=== PATIENT | female | born 1965 | race Caucasian/White ===

== ENCOUNTER 2023-07-01 13:39 | Outpatient (REF) | payer OTHER, SELFPAY | END 2023-07-01 13:40 | disposition home or self-care (01) | LOC: HO.MRI 13:39 | PROVIDERS: PCP Hospitalist; Visit Provider Psychiatry & Neurology Neurology | DX: R51.9 Headache, unspecified (principal) | CPT/HCPCS: 70553; A9585 ==

== ENCOUNTER 2024-04-19 20:59 | Emergency (ER) | payer OTHER, SELFPAY ==
--- NOTE | ~2024-04-19 | XR_ITS ---
EXAMINATION: XR CHEST CLINICAL INFORMATION: Shortness of breath. COMPARISON: None available. TECHNIQUE: 2 views of the chest were obtained. FINDINGS: No significant abnormality is noted involving the heart, lungs, mediastinum, bony thorax or soft tissues. XR/XR chest 2V IMPRESSION: Unremarkable examination. Electronically signed by: Reinaldo Moreau MD 04/19/2024 11:44 PM EDT RP
--- NOTE | 2024-04-19 21:21 | ECG_ITS ---
Test Reason : CHEST PAIN Blood Pressure : / mmHG Vent. Rate : 099 BPM Atrial Rate : 099 BPM P-R Int : 154 ms QRS Dur : 092 ms QT Int : 346 ms P-R-T Axes : 038 -01 062 degrees QTc Int : 444 ms Normal sinus rhythm Normal ECG No previous ECGs available Referred By: Generic ED Physician Electronically Signed By:Fausto Khan
[2024-04-19 22:15] VITALS: BP 121/68; PULSE 87; RESP 16; TEMP 36.8; O2SAT 97
[2024-04-19 23:06] LABS: Basophils Absolute Auto 0.1 X10*3/uL (0.0-0.2); Basophils Percent Auto 0.6 % (0-2); Eosinophils Absolute Auto 0.2 X10*3/uL (0.0-0.4); Eosinophils Percent Auto 1.8 % (0-4); Hematocrit 42.7 % (37.0-47.0); Hemoglobin 14.4 g/dl (12.0-16.0); Imm Gran Abs Auto 0.04 X10*3/uL (0.00-0.03); Imm Gran Pct Auto 0.3 % (0.0-0.4); Lymphocytes Absolute Auto 3.4 X10*3/uL (1.2-4.9); Lymphocytes Percent Auto 27.1 % (20-40); MANUAL DIFF FLAG NO; Mean Corpuscular HGB Conc 33.7 g/dl (31.0-35.0); Mean Corpuscular Hemoglobin 29.8 pg (27.0-33.0); Mean Corpuscular Volume 88.2 fL (80.0-98.0); Mean Platelet Volume 9.4 fL (9.4-12.3); Monocytes Percent Auto 7.7 % (2-11); Neutrophils Absolute Auto 7.9 x10*3/uL (2.0-8.3); Neutrophils Percent Auto 62.5 % (45-73); Platelet Count 336 X10*3/uL (160-400); Red Blood Count 4.84 X10*6/uL (4.20-5.50); Red Cell Distribution Width 12.5 % (11.0-16.0); White Blood Count 12.6 X10*3/uL (4.8-10.8)
[2024-04-19 23:17] VITALS: PULSE 78
[2024-04-19 23:21] LABS: Alanine Aminotransferase 25 U/L (0-31); Albumin Level 4.4 g/dL (3.5-5.0); Alkaline Phosphatase 79 U/L (39-117); Anion Gap 10 (12-20); Aspartate Amino Transferase 17 U/L (5-31); Bilirubin Total 0.3 mg/dL (0.0-1.0); Blood Urea Nitrogen 20 mg/dL (9-16); Calcium 9.7 mg/dL (8.4-10.2); Carbon Dioxide 27 mmol/L (22-29); Chloride 108 mmol/L (96-108); Creatinine Clr Calc Pharmacy 77.2; Estimated Glomerular Filt Rate > 60; Glucose Random 104 mg/dL (60-115); Potassium 3.9 mmol/L (3.3-5.1); Sodium 141 mmol/L (135-145); Total Protein 7.3 g/dL (6.5-8.0)
[2024-04-19 23:29] LABS: Troponin-I High Sensitivity < 2.7 ng/L (<3.5-17.0)
[2024-04-19 23:32] VITALS: BP 122/71; PULSE 76; RESP 18; O2SAT 94
--- NOTE | 2024-04-19 23:34 | ED.ARRPALP ---
HPI - Arrhythmia/Palpitations General Chief Complaint: Arrhythmia/Palpitations Stated Complaint: Palpitations Time Seen by Provider: 04/19/24 23:34 Source: patient Mode of arrival: ambulatory Limitations: no limitations History of Present Illness ED Provider: robinson BRADSHAW narrative: Patient's history of palpitation off and on for last several months with history of anxiety started on metoprolol by her PCP 2 weeks ago on telemetry monitor noticed patient has been having PVCs unifocal denied any significant runs of extra beats no dizziness no passing out patient also has gastric reflux and she taking omeprazole Related Data Previous Rx's ?Medication ?Instructions ?Recorded omeprazole 40 mg capsule,delayed 40 mg PO DAILY #30 caps 04/19/24 release sucralfate 1 gram tablet 1 g PO TID #90 tabs 04/19/24 Allergies Allergy/AdvReac Type Severity Reaction Status Date / Time ampicillin AdvReac Hives Verified 04/19/24 22:17 Review of Systems Review of Systems: Yes all other systems are reviewed and are negative [facility] Social History Social History Smoked in Last 30 Days: No Use of substances other than those prescribed or required for medical reasons: No Advance Directives: No Advance Directives Information Provided: Yes Do you have a plan to hurt others: No Plan Patient : No Physical Exam Vital Signs: Vital Signs: Last Vital Signs Temp 97.9 F 04/20/24 00:23 Pulse 76 04/20/24 00:23 Resp 18 04/20/24 00:23 BP 122/71 04/20/24 00:23 Pulse Ox 94 04/20/24 00:23 O2 Del Method Room Air 04/19/24 22:15 BMI result Body Mass Index 30.0 Appearance: Alert. Oriented X3. No acute distress. ENT: Pharynx normal. Oral Mucosa moist Neck: Normal inspection. Neck supple. CVS: Normal heart rate and rhythm. Pulses normal. Respiratory: No respiratory distress. Equal air entry bilateral, no wheezing/rales/rhonchi Abdomen: Soft and mild epigastric tenderness. Bowel sounds are present, no mass palpable, no CVA tenderness Skin: Skin warm and dry. Normal skin color. Normal skin turgor. Extremities: No lower extremity edema. No calf tenderness Neuro: Oriented X 3. Medications Administered Discontinued Medications Generic Name Dose Route Start Last Admin Trade Name Stephanie PRN Reason Stop Dose Admin Al Hydroxide/Mg Hydroxide 30 ml 04/19/24 23:55 04/19/24 23:59 Magnesium Hydrox/Alum Hydrox 30 Ml Oral.Susp PO 04/19/24 23:56 30 ml ONCE ONE Administration Omeprazole 40 mg 04/19/24 23:55 04/19/24 23:59 Omeprazole 40 Mg Capsule.Dr PO 04/19/24 23:56 40 mg ONCE ONE Administration Medical Decision Making Medical Decision Making [facility] Narrative: Patient's episodes of palpitation telemetry monitor noticed to have PVCs unifocal patient is already on started metoprolol plan to see [employer] cable tool driller advised patient to continue same follow up with [employer] cable tool driller will give her sucralfate for gastric reflux advised to continue omeprazole Differential Diagnosis Differential Diagnoses: The differential diagnosis associated with the presentation includes Admission/Observation Consideration of admission/observation: Escalation of care including admission/observation considered Lab Data [facility] Lab Attestation statement: I reviewed the patient's lab results. 04/19/24 23:01 04/19/24 23:01 Labs: Lab Results 04/19/24 Range/Units 23:01 WBC 12.6 H (4.8-10.8) X10*3/uL RBC 4.84 (4.20-5.50) X10*6/uL Hgb 14.4 (12.0-16.0) g/dl Hct 42.7 (37.0-47.0) % MCV 88.2 (80.0-98.0) fL MCH 29.8 (27.0-33.0) pg MCHC 33.7 (31.0-35.0) g/dl RDW 12.5 (11.0-16.0) % Plt Count 336 (160-400) X10*3/uL MPV 9.4 (9.4-12.3) fL Immature Gran % (Auto) 0.3 (0.0-0.4) % Neut % (Auto) 62.5 (45-73) % Lymph % (Auto) 27.1 (20-40) % Hanson % (Auto) 7.7 (2-11) % Eos % (Auto) 1.8 (0-4) % Baso % (Auto) 0.6 (0-2) % Lymph # (Auto) 3.4 (1.2-4.9) X10*3/uL Hanson # (Auto) 1.0 (0.1-1.2) X10*3/uL Eos # (Auto) 0.2 (0.0-0.4) X10*3/uL Baso # (Auto) 0.1 (0.0-0.2) X10*3/uL Abs Immat Gran (auto) 0.04 H (0.00-0.03) X10*3/uL Absolute Neuts (auto) 7.9 (2.0-8.3) x10*3/uL Absolute Nucleated RBC 0.000 (0.0-0.012) X10*3/uL Nucleated RBC % (auto) 0.0 (0.0-0.2) /100WBC Sodium 141 (135-145) mmol/L Potassium 3.9 (3.3-5.1) mmol/L Chloride 108 (96-108) mmol/L Carbon Dioxide 27 (22-29) mmol/L Anion Gap 10 L (12-20) BUN 20 H (9-16) mg/dL Creatinine 0.80 (0.5-1.4) mg/dL Estim Creat Clear Calc 77.2 Estimated GFR > 60 Random Glucose 104 (60-115) mg/dL Calcium 9.7 (8.4-10.2) mg/dL Total Bilirubin 0.3 (0.0-1.0) mg/dL AST 17 (5-31) U/L ALT 25 (0-31) U/L Alkaline Phosphatase 79 (39-117) U/L Troponin I High Sens < 2.7 (<3.5-17.0) ng/L Total Protein 7.3 (6.5-8.0) g/dL Albumin 4.4 (3.5-5.0) g/dL Independent Interpretation I performed an independent interpretation of an: EKG Interpretation: Normal sinus rhythm heart rate 99 beats per normal interval normal axis no acute STT wave changes no acute ischemia Discharge Plan Discharge Clinical Impression: Ventricular premature beats, Chronic GERD Patient Disposition: Home, Self-Care Instructions: Gastroesophageal Reflux Disease (ED), Premature Ventricular Contractions (ED) Additional Instructions: You have premature ventricular contractions likely the cause for palpitation you need further evaluation by oil well cable tool driller as scheduled including Holter monitoring and echo For gastric reflux take omeprazole and sucralfate 1 tablet 3 times a day before meals Avoid fried food Prescriptions: New omeprazole 40 mg capsule,delayed release(DR/EC) 40 mg PO DAILY Qty: 30 0RF sucralfate 1 gram tablet 1 g PO TID Qty: 90 0RF Interventions: ED Discharge Assessment Last Done: 04/20/24 00:23 Discharge Date/Time: 04/20/24 00:24 Print Language: Greenlandic
[2024-04-19] MEDS: Omeprazole 40 MG CAPSULE.DR PO (23:59)
[2024-04-19] MEDS: Magnesium Hydrox/Alum Hydrox 30 ML ORAL.SUSP PO (23:59)
--- OUTSIDE RECORDS SUMMARY | 2024-04-20 00:03 | XMS_ITS ---
Author Organization [facility] Address [address] [place] [address] Care Team Providers Care Vegetable Sorter Name Role Phone CHAPITO MOE Primary Care Provider REASON FOR VISIT Office visit note request Encounters Encounter Location Date Provider Diagnosis [facility] [address] [facility] [facility] [address] [place] [address] 04/18/2024 CHAPITO MOE Plan Of Treatment Next Appt Details Provider Name:CHAPITO MOE , 04/17/2025 01:00:00 PM, [address] [place] [address], [place], [address], Progress Notes * Yoko EUBANKSDOB: [birth year] (58 yo F)Acc No.[id number]:04/18/2024 Patient:?Yoko EUBANKS :1965???Age:58 Y???Sex:Female Address:[address] [place], [place] [address] [address] * true * Date:? Generated for Printi ng/Carrie/eTransmitting on:?04/20/2024 12:03 AM EDT
--- OUTSIDE RECORDS SUMMARY | 2024-04-20 00:04 | XMS_ITS ---
Author Organization [facility] Address [address] [place] [address] Care Team Providers Care Mica Plate Layer Name Role Phone PAYAL CHAPITO Primary Care Provider Allergies Allergen (clinical drug ingredient) Drug/Non Drug Allergy documented on EMR Reaction Allergy Type Onset Date Status Penicillin Unknown Drug Allergy Active Reason For Referral Reason Evaluation and manag ement Diagnosis 1 Encounter for screen ing for malignant neoplasm of cervix (Z12.4) Referral Organization [facility] ter Referring Provider First Name CHAPITO Referring Provider Last Name PAYAL Referring Provider Speciality Internal M edicine Referred Provider Specialty Commercial Credit Portfolio Manager General Notes Referral faxed to [facility] - Office will call patient for scheduling.Tish Latraya 04/13/2024 03:56:26 PM > Referral Priority Routine REASON FOR VISIT CPE Medications Medication SIG (Take, Route, Frequency, Duration) Notes Start Date End Date Status DULoxetine HCl 30 MG 1 capsule Orally Twice a day for 30 days Active Imitrex 100 MG 1 tablet at least 2 hours between doses as needed Orally Twice a day for 30 days 04/29/2021 Active Ondansetron 4 MG 1 tablet on the tongue and allow to dissolve Orally Once a day for 15 days Active Clobetasol Propionate 0.05 % 1 application Externally Twice a day for 30 days Not-Taking Vitamin D3 50 MCG (2000 UT) 1 capsule Orally Once a day for 30 days 08/21/2020 Active Vitamin B12 1000 MCG 1 tablet Orally Onc e a day for 90 days Active Meclizine HCl 25 MG 1 tablet as needed Orally daily for 30 days 04/02/2022 Active Prazosin HCl 2 MG 1 capsule at bedtime Orally Once a day for 30 days Active Protonix 40 MG 1 tablet Orally Once a day 05/03/2020 Active Loratadine 10 MG 1 tablet Orally Once a day for 90 days Active Radha-D 24 Hour Ac tive Naproxen Sodium 220 MG 1 capsule with fo od or milk as needed Orally every 12 hrs Active Mapap Arthritis Pain 650 MG Take 1-2 tablets Orally 2 times daily as needed Active Sucralfate 1 GM 1 tablet on an empty stomach Orally Twice a day for 30 days 04/13/2024 Active traZODone HCl 50 MG 1 tablet at bedtime as needed Orally Once a day Active Yuvafem 10 MCG 1 tablet Vaginal Two times a Week for 30 days 04/13/2024 Active Metoprolol Succinate ER 50 MG 1 tablet Orally Once a day Active Ergocalciferol 1.25 MG (49381 UT) 1 capsule Orally weekly for 90 days 04/13/2024 Active Fluticasone Propionate 50 MCG/ACT 1 spray in each nostril Nasally Once a day for 30 day(s) 12/28/2020 Active Cyclobenzaprine HCl 5 MG 1 tablet at bed time as needed Orally Once a day Dr. Elizabeth Active Rosuvastatin Calcium 5 MG 1 tablet Orally Once a day for 30 days 04/13/2024 Active Social History Tobacco Use: Social History Observation Description Date Details (start date - stop date) Never Smoker NA - NA Tobacco Use/Smoking Question Answer Notes Are you a nonsmoker Problems Problem Type SNOMED Code ICD Code Onset Dates Problem Status W/U Status Risk Notes Problem Postmenopausal atrophic vaginitis (61838251) Postmenopausal atrophic vaginitis (N95.2) Active confirmed Vital Signs Temperature 97.5 degrees Fahrenheit 04/13/20 24 Blood pressure systolic 122 mm Hg 04/13/20 24 Blood pressure diastolic 80 mm Hg 024 Heart Rate 96 /min 04/13/2024 Height 5'1 in 04/13/2024 Weight 174.9 lbs 04/13/2024 BMI 33.04 kg/m2 04/13/2024 Oximetry 97 % 04/13/2024 Encounters Encounter Location Date Provider Diagnosis [facility] [address] [place] [address] 04/13/2024 CHAPITO MOE Encounter for genera l adult medical examination without abnormal findings Z00.00 ; Mixed hyperlipidemia E78.2 ; Gastro-esophageal reflux disease without esophagitis K21.9 ; Generalized anxiety disorder F41.1 ; Major depressive disorder, recurrent, moderate F33.1 ; Vitamin D deficiency, unspecified E55.9 and Postmenopausal atrophic vaginitis N95.2 Assessments Encounter Date Diagnosis (ICD Code) Assessment Notes Treat ment Notes Treatment Clinical Notes 04/13/2024 Encounter for genera l adult medical examination without abnormal findings (ICD-10 - Z00.00) 04/13/2024 Mixed hyperlipidemia (ICD-10 - E78.2) 04/13/2024 Gastro-esophageal reflux disease without esophagitis (ICD-10 - K21.9) 04/13/2024 Generalized anxiety disorder (ICD-10 - F41.1) 04/13/2024 Major depressive disorder, recurrent, moderate (ICD-10 - F33.1) 04/13/2024 Vitamin D deficiency , unspecified (ICD-10 - E55.9) 04/13/2024 Postmenopausal atrophic vaginitis (ICD-10 - N95.2) Plan Of Treatment Medication Medication Name Sig Start Date Stop Date Notes Sucralfate 1 GM 1 tablet on an empty stomach Orally Twice a day for 30 days 04/13/2024 Yuvafem 10 MCG 1 tablet Vaginal Two times a Week for 30 days 04/13/2024 Ergocalciferol 1.25 MG (02285 UT) 1 caps ule Orally weekly for 90 days 04/13/2024 Rosuvastatin Calcium 5 MG 1 tablet Orall y Once a day for 30 days 04/13/2024 Future Test Test Name Order Date Lipid Panel-[id number] 04/13/2024 Referrals Referral Date Details 04/13/2024 04/13/2024, Evaluati on and management Next Appt Details Follow Up: 1 Year- Rolando ARCE n: Provider Name:CHAPITO MOE , 04/17/2025 01:00:00 PM, [address] [place] [address], [id number], Progress Notes * Yoko EUBANKSDOB: [birth year] (58 yo F)Acc No.[id number]:04/13/2024 Progress Notes Patient:?Yoko EUBANKS Provider:?CHAPITO MOE MD :1965???Age:58 Y???Sex:Female D ate:04/13/2024 Address:[address] [id number] Subjective: * Chief Complaints: * ???CPE * HPI: ???Depression Screening:?PHQ-9?Little interest or pleasure in doing things?Nearly every day ?Feeling down, depressed, or hopeless?Nearly every day ?Trouble falling or staying asleep, or sleeping too much?Nearly every day ?Feeling tired or having little energy?Nearly every day ?Poor appetite or overeating?More than half the days ?Feeling bad about yourself or that you are a failure, or have let yourself or your family down?Several days ?Trouble concentrating on things, such as reading the newspaper or watching television?More than half the days ?Moving or speaking so slowly that other people could have noticed; or the opposite, being so fidgety or restless that you have been moving around a lot more than usual?More than half the days ?Thoughts that you would be better off or of hurting yourself in some way?Not at all ?Total Score?19 ?Interpretation?Moderately Severe Depression ???Addiction/Drug Abuse:? Patient is here for her annual physical. She still complains of palpitations and chest pain radiatring to the left scapular region. Patient has gone to her psychiatrist who prescribed metoprolol and she has been taking it for the last 10 days with no improvemnt. She feels her she has skipping beat within the last 2 weeks. Heartburn has not improved with antiacid medications. She had her upper endoscopy within the last year and was found to have hiatal hernia. She has anxiety and depression and she follows up with psychiatry. She walks with a cane and she needs help with activities of daily living like taking a shower, dressing, lifting, medication and transportation. * ROS:?General/Constitutional:?Overall health?Good.?Change in appetite?denies.?Chills?denies.?Fever?denies.?Night sweats?denies.?Sleep disturbance?denies.?Weight gain?denies.?Weight loss?denies.?Neurologic:?Difficulty speaking?denies.?Dizziness?denies.?Gait abnormality?,admits.?Headache?denies.?Loss of strength?denies.?Memory loss?denies.?Seizures?denies.?Tingling/Numbness?denies ?.?Ophthalmologic:?Blurred vision?denies.?Discharge?denies.?Dry eye?denies.?Red eye?denies.?ENT:?Change in Voice?Denies.?Cold Symptoms?Denies.?Cough?Denies.?Dizziness?Denies.?Nasal Congestion?Denies.?Otalgia?Denies.?postnasal drip?Denies.?Blocked ear?denies.?Nosebleed?denies.?Snoring?denies.?Cardiovascular:?Diaphoresis?Denies.?Pedal Edema?Denies.?PND (Paroxsymal nocturnal dyspnea)?Denies.?Patient complaining of?palpitations.?Chest pain?denies.?Difficulty laying flat?denies.?Dyspnea on exertion denies.?Heart murmur?denies.?Orthopnea?denies.?Respiratory:?Snoring?denies.?Asthma?denies.?Cough?denies.?Shortness of breath with exertion?denies.?Sputum production?denies.?Wheezing?denies.?Gastrointestinal:?Abdominal pain?denies.?Change in bowel habits?denies.?Constipation?denies.?Decreased appetite?denies.?Diarrhea?denies.?Heartburn?,admits.?Nausea?denies.?Vomiting?den ies.?Musculoskeletal:?tingling/numbness?Denies.?myalgias?Denies.?Joint Swelling?Denies.?extremeties?normal.?Arthritis?,admits.?Back problems?,admits.?Carpal tunnel?denies.?Joint stiffness?denies.?Muscle aches?denies.?Endocrine:?Bowel Changes?Denies.?Breast Discharge?Denies.?poor libido?Denies.?Cold intolerance?denies.?Excessive sweating?denies.?Excessive thirst?denies.?Frequent urination?denies.?Thyroid problems?denies.?Skin:?Bruising?Denies.?Eczema?denies.?Hair changes?denies.?Rash?denies.?Skin lesion(s)?denies.?Psychiatric:?Anxiety?denies.?Depressed mood?denies.?Difficulty sleeping?denies.?Nervous breakdown?denies.?Substance abuse?denies.?Urology:?abnormal menstrual bleeding?denies.?blood in urine?denies.?burning on urination?denies.?difficulty urinating?denies.?discharge?denies.?dysuria?denies.? * Medical History:? * Surgical History:?hemorrhoid s Bladder suspension C section 2003 * Hospitalization/Major Diagno stic Procedure:? * Family History:?Father: diag nosed with Hypertension.? * Social History:?Tobacco Use:?Tobacco Use/Smoking?Are you a?nonsmoker ???Drugs/Alcohol:?Drugs?Have you used drugs other than those for medical reasons in the past 12 months??No ?Do you smoke marijuana?: Denies. ???Miscellaneous:?Marital status: . * Medications:?TakingMetoprolo l Succinate ER 50 MG Tablet Extended Release 24 Hour 1 tablet Orally Once a day Fluticasone Propionate 50 MCG/ACT Suspension 1 spray in each nostril Nasally Once a day Cyclobenzaprine HCl 5 MG Tablet 1 tablet at bedtime as needed Orally Once a day , Notes to Pharmacist: Dr. Ko 24 Hour Naproxen Sodium 220 MG Capsule 1 capsule with food or milk as needed Orally every 12 hrs Mapap Arthritis Pain 650 MG Tablet Extended Release Take 1-2 tablets Orally 2 times daily as needed traZODone HCl 50 MG Tablet 1 tablet at bedtime as needed Orally Once a day Vitamin B12 1000 MCG Tablet Extended Release 1 tablet Orally Once a day Meclizine HCl 25 MG Tablet 1 tablet as needed Orally daily Protonix 40 MG Tablet Delayed Release 1 tablet Orally Once a day Loratadine 10 MG Tablet 1 tablet Orally Once a day Prazosin HCl 2 MG Capsule 1 capsule at bedtime Orally Once a day Vitamin D3 50 MCG (2000 UT) Capsule 1 capsule Orally Once a day DULoxetine HCl 30 MG Capsule Delayed Release Particles 1 capsule Orally Twice a day Imitrex 100 MG Tablet 1 tablet at least 2 hours between doses as needed Orally Twice a day Ondansetron 4 MG Tablet Disintegrating 1 tablet on the tongue and allow to dissolve Orally Once a day Taking Metoprolol Succinate ER 50 MG Tablet Extended Release 24 Hour 1 tablet Orally Once a day Taking Fluticasone Propionate 50 MCG/ACT Suspension 1 spray in each nostril Nasally Once a day Taking Cyclobenzaprine HCl 5 MG Tablet 1 tablet at bedtime as needed Orally Once a day , Notes to Pharmacist: Dr. Mila Phillpis 24 Hour Taking Naproxen Sodium 220 MG Capsule 1 capsule with food or milk as needed Orally every 12 hrs Taking Mapap Arthritis Pain 650 MG Tablet Extended Release Take 1-2 tablets Orally 2 times daily as needed Taking traZODone HCl 50 MG Tablet 1 tablet at bedtime as needed Orally Once a day Taking Vitamin B12 1000 MCG Tablet Extended Release 1 tablet Orally Once a day Taking Meclizine HCl 25 MG Tablet 1 tablet as needed Orally daily Taking Protonix 40 MG Tablet Delayed Release 1 tablet Orally Once a day Taking Loratadine 10 MG Tablet 1 tablet Orally Once a day Taking Prazosin HCl 2 MG Capsule 1 capsule at bedtime Orally Once a day Taking Vitamin D3 50 MCG (1999 UT) Capsule 1 capsule Orally Once a day Taking DULoxetine HCl 30 MG Capsule Delayed Release Particles 1 capsule Orally Twice a day Taking Imitrex 100 MG Tablet 1 tablet at least 2 hours between doses as needed Orally Twice a day Taking Ondansetron 4 MG Tablet Disintegrating 1 tablet on the tongue and allow to dissolve Orally Once a day Not-TakingClobetasol Propionate 0.05 % Cream 1 application Externally Twice a day Medication List reviewed and reconciled with the patientNot-Taking Clobetasol Propionate 0.05 % Cream 1 application Externally Twice a day Medication List reviewed and reconciled with the patient * Allergies:?Penicillinno[Te rgies Verified] Objective: * Vitals:?Temp:97.5F, Oxygen s at %:97%, HR:96/min, BP: 130/76 mm Hg,122/80mm Hg, Wt:174.9lbs, BMI:33.04Index, Ht: 5'1 . * ???Past Orders: ???Lab:Albumin/Creatinine Ra marissa,Urine-[id number] (Order Date - 02/16/2024) (Collection Date & Time - 02/17/2024 10:26 AM) ? Value Reference Range ?Creatinine, Urine 83.0 No t Estab. - mg/dL ?Albumin, Urine 6.4 Not E stab. - ug/mL ?Alb/Creat Ratio 8 0-29 - mg/g creat ???Lab:Comp. Metabolic Panel [id number] (Order Date - 02/16/2024) (Collection Date & Time - 02/17/2024 10:26 AM) ? Value Reference Range ?Glucose 116 H 70-99 - mg/d L ?BUN 13 6-24 - mg/dL ?Creatinine 0.74 0.57-1.00 - mg/dL ?BUN/Creatinine Ratio 18 9-23 - ?Sodium 141 134-144 - mmo l/L ?Potassium 4.1 3.5-5.2 - mmol/L ?Chloride 104 96-106 - mm ol/L ?Carbon Dioxide, Total 22 20-29 - mmol/L ?Calcium 9.7 8.7-10.2 - m g/dL ?Protein, Total 7.3 6.0-8 .5 - g/dL ?Albumin 4.5 3.8-4.9 - g/ dL ?Globulin, Total 2.8 1.5- 4.5 - g/dL ?Bilirubin, Total 0.4 0.0 -1.2 - mg/dL ?Alkaline Phosphatase 76 44-121 - IU/L ?AST (SGOT) 12 0-40 - IU /L ?ALT (SGPT) 10 0-32 - IU /L ?eGFR 93 >59 - mL/min/1. 73 ???Lab:Lipid Panel-[id number] (O rder Date - 02/16/2024) (Collection Date & Time - 02/17/2024 10:26 AM) ? Value Reference Range ?Cholesterol, Total 248 H 1 00-199 - mg/dL ?Triglycerides 124 0-149 - mg/dL ?HDL Cholesterol 63 >39 - mg/dL ?VLDL Cholesterol Giancarlo 22 5-40 - mg/dL ?LDL Chol Calc ([facility] [place]) 163 H 0-99 - mg/dL ???Lab:Hemoglobin [id number] (Order Date - 02/16/2024) (Collection Date & Time - 02/17/2024 10:26 AM) ? Value Reference Range ?Hemoglobin A1c/ Hemoglobin total 6.2 H 4.8-5.6 - % ???Lab:Vitamin D, 25-Hydroxy -[id number] (Order Date - 02/16/2024) (Collection Date & Time - 02/17/2024 10:26 AM) ? Value Reference Range ?Vitamin D, 25-Hydroxy 19.3 L 30.0-100.0 - ng/mL ???Lab:Vitamin [id number] (O rder Date - 02/16/2024) (Collection Date & Time - 02/17/2024 10:26 AM) ? Value Reference Range ?Vitamin B12 959 433-3977 - pg/mL ???Lab:CBC, Platelet, No Dif ferential-[id number] (Order Date - 02/16/2024) (Collection Date & Time - 02/17/2024 10:26 AM) ? Value Reference Range ?WBC 6.9 3.4-10.8 - x10E 3/uL ?RBC 5.13 3.77-5.28 - x10 E6/uL ?Hemoglobin 14.9 11.1-15.9 - g/dL ?Hematocrit 46.8 H 34.0-46.6 - % ?MCV 91 79-97 - fL ?MCH 29.0 26.6-33.0 - pg ?MCHC 31.8 31.5-35.7 - g/d L ?RDW 13.0 11.7-15.4 - % ?Platelets 305 150-450 - x10E3/uL ???Lab:Iron and [id number] (Order Date - 02/16/2024) (Collection Date & Time - 02/17/2024 10:26 AM) ? Value Reference Range ?Iron Bind.Cap.(TIBC) 367 250-450 - ug/dL ?UIBC 264 131-425 - ug/dL ?Iron 103 27-159 - ug/dL ?Iron Saturation 28 15-5 5 - % ???Lab:Ferritin-[id number] (Orde r Date - 02/16/2024) (Collection Date & Time - 02/17/2024 10:26 AM) ? Value Reference Range ?Ferritin 96 15-150 - ng /mL ???Lab:[id number] (Order Deniz e - 02/16/2024) (Collection Date & Time - 02/17/2024 10:26 AM) ? Value Reference Range ?TSH 4.020 0.450-4.500 - u IU/mL * Examination: ???General Examination: ?Psychiatry?Normal.?GENERAL APPEARANCE:?Well developed, well nourished, in no acute distress.?MUSCULOSKELETAL:?pain on palpation on the sternum.?HEAD:?Normocephalic, atraumatic.?EYES:?Pupils equal, round, reactive to light and accommodation, sclera non-icteric.?EARS:?Normal.?ORAL CAVITY:?Normal.?THROAT:?Mallampati Class 4.?OROPHARYNX?Normal.?SINUSES?Normal.?NECK/THYROID:?Neck supple, full range of motion, no cervical lymphadenopathy.?SKIN:?Warm and dry, no suspicious lesions.?HEART:?Normal.?LUNGS:?Normal.?BREASTS:?__.?ABDOMEN:?Soft, nontender, nondistended, bowel sounds present,discomfort on palpation in epigastric area.?EXTREMITIES:?Normal.?PERIPHERAL PULSES:?Normal.?NEUROLOGIC:?Nonfocal,? appropriate?motor strength normal upper and lower extremities, sensory exam intact.?FEMALE GENITOURINARY:?__.?MALE GENITOURINARY:?__.?PODIATRIC:?Normal.?Psychiatric Aide Instructor? .? Assessment: * Assessment: 1.?Encounter for general mónica lt medical examination without abnormal findings - Z00.00 (Primary)?2.?Mixed hyperlipidemia - E78.2?3.?Gastro-esophageal reflux disease without esophagitis - K21.9?4.?Generalized anxiety disorder - F41.1?5.?Major depressive disorder, recurrent, moderate - F33.1?6.?Vitamin D deficiency, unspecified - E55.9?7.?Postmenopausal atrophic vaginitis - N95.2? Mrs Eubanks is 58-year-ol d Slovenian speaking lady was accompanied by her son with hyperlipidemia, GERD, generalized anxiety disorder/major depression and she sees psychiatrist is here today for a physical. She also complains of palpitation and epigastric pain and discomfort. Plan is as follows Mixed hyperlipidemia. Lipid panel abnormal started on Crestor 5 mg daily and recheck lipid panel in 6-8 weeks. Diet restrictions discussed GERD. Continue PPIs and we will add sucralfate 1 g twice a day and follow up with GI. Low vitamin D levels. Started on vitamin D3 50,000 international units daily every weekly for 12 weeks and after that take 1000 international units daily for maintenance Generalized anxiety disorder/major depression. She follows up with psychiatry and is stable on current regimen Poly osteoarthritis/back pain. She follows up with physiatry Dr. Pleitez and she also had intra-articular injection in her knee joint. She uses a cane to walk. She needs help with showering, dressing, medication, lifting and transportation. Atrophic vaginitis. Started her on vaginal tablets. She is given referral to mobile ui/ux designer. Screening blood work reviewed. Plan: * Treatment: 2.?Gastro-esophageal reflux disease without esophagitis? Start Sucralfate Tablet, 1 GM, 1 tablet on an empty stomach, Orally, Twice a day, 30 days, 60, Refills 5.?? 3.?Vitamin D deficiency, uns pecified? Start Ergocalciferol Capsule, 1.25 MG (96020 UT), 1 capsule, Orally, weekly, 90 days, 12.?? 4.?Postmenopausal atrophic v aginitis? Start Yuvafem Tablet, 10 MCG, 1 tablet, Vaginal, Two times a Week, 30 days, 8, Refills 5.?? 5.?Others? Referral To:Commercial Credit Portfolio Manager ?Reason:Evaluation and management * Procedure Codes:?3079F DIAST BP 80-89 MM WE5317U SYST BP LT 130 MM GO9023C DIAST BP < 80 MM SI3441U SYST BP GE 130 - 139MM HG * Preventive Medicine:?FLU NO COVID (2) 2020 TDAP 02/2020 MAMMOGRAM 11/2023 [facility] SPRAY PAINTER HELPER NEEDS NEW PROVIDER. * Follow Up:?1 Year- AW * Images: * Sign off status: Completed true * Provider:?CHAPITO MOE MD Date:?04/13 Generated for Darlene villarreal/Carrie/eTransmitting on:?04/20/2024 12:03 AM EDT History and Physical Notes * HPI (History of Present Illness) Category Sub-Category Detail Notes Depression Screening PHQ-9 Little inte rest or pleasure in doing things: Nearly every day Feeling down, depressed, or hopeless: Ne baylee every day Trouble falling or staying asleep, or sl eeping too much: Nearly every day Feeling tired or having little energy: N early every day Poor appetite or overeating: More than h nicole the days Feeling bad about yourself o r that you are a failure, or have let yourself or your family down: Several days Trouble concentrating on thi ngs, such as reading the newspaper or watching television: More than half the days Moving or speaking so slowly that other people could have noticed; or the opposite, being so fidgety or restless that you have been moving around a lot more than usual: More than half the days Thoughts that you would be b anu off or of hurting yourself in some way: Not at all Total Score: 19 Interpretation: Moderately Severe Depres vivienne Examination Category Sub-Category Detail Notes General Examination GENERAL APPEARANCE: Well dev eloped, well nourished, in no acute distress HEAD: Normocephalic, atrau matic EYES: Pupils equal, round, reactive to light and accommodation, sclera non-icteric EARS: Normal THROAT: Mallampati Class 4 NECK/THYROID: Neck supple, full ra nge of motion, no cervical lymphadenopathy HEART: Normal LUNGS: Normal ABDOMEN: Soft, nontender, non distended, bowel sounds present, discomfort on palpation in epigastric area NEUROLOGIC: Nonfocal, appropriat e motor strength normal upper and lower extremities, sensory exam intact SKIN: Warm and dry, no shana picious lesions EXTREMITIES: Normal PERIPHERAL PULSES: Normal BREASTS: __ MUSCULOSKELETAL: pain on palpation on the sternum MALE GENITOURINARY: __ FEMALE GENITOURINARY: __ ORAL CAVITY: Normal PODIATRIC: Normal Psychiatry Normal OROPHARYNX Normal SINUSES Normal Psychiatric Aide Instructor Consultation Request Notes Referral Date Referring Provider Referred Provider Not radha 04/13/2024 CHAPITO MOE , Evaluation and management
--- OUTSIDE RECORDS SUMMARY | 2024-04-20 00:04 | XMS_ITS | Continuity of Care Document ---
Author Organization [facility] ter Address [address] [place] [address]- Care Team Providers Care Contract Clerk Name Role Phone Vernon Jamison MD Primary Care Physician [place] [facility] [place] 09/23/21 - 11/18/[address] [address]- Attending Physician: Vernon Jamison MD Allergies, Adverse Reactions, Alerts Substance Reaction Severity Status ampicillin itch Active Anbesol Maximum Strength Act tremayne Medications acetaminophen/dextromethorphan/guaiFENesin/pseudoephedrine 325 mg-15 mg-200 mg- 30 mg oral tablet 0 Refills, Maintenance, 04/21/17 10:01:00 Start Date: 04/21/17 Status: Ordered Calmoseptine 0.44%-20.6% topical ointment See Instructions, 1 application 2 times a day, # 71 Gm, 2 Refills, Maintenance, 02/15/19 11:42:42 EDT, 1 application 2 times a day Start Date: 02/15/19 Status: Ordered Calmoseptine topical ointment 1 applicator, Topically, 2 times a day, # 71 Gm, 1 Refills, Maintenance, 05/31/18 12:22:56 EST, 1 applicator Topically 2 times a day,x30 days Start Date: 05/31/18 Stop Date: 07/30/18 Status: Ordered Colace sodium 100 mg oral capsule 100 mg, 1, capsule, By Mouth, 2 times a day, PRN, # 14 capsule, Refills 0, Tot. Refills 0, Maintenance, Constipation, 05/05/17 13:58:05, Print Requisition Start Date: 05/05/17 Stop Date: 05/12/17 Status: Ordered fluticasone 50 mcg inhalation powder Inhalation, 2 times a day, 0 Refills, Maintenance, 04/21/17 10:01:27 Start Date: 04/21/17 Status: Ordered ibuprofen 600 mg oral tablet 1 tablet = 600 mg, By Mouth, Every 6 hours, # 30 tablet, 0 Refills, Maintenance, 06/01/15 20:59:52,Tablet Start Date: 06/01/15 Status: Ordered ibuprofen 800 mg oral tablet 800 mg, 1, tablet, By Mouth, 3 times a day, # 21 tablet, Refills 0, Tot. Refills 0, Maintenance, 05/05/17 13:58:03, Print Requisition Start Date: 05/05/17 Stop Date: 05/12/17 Status: Ordered Loratadine By Mouth, Refills 0, Maintenance, 04/21/17 10:01:40 Start Date: 04/21/17 Status: Ordered omeprazole 20 mg oral enteric coated capsule 1 capsule = 20 mg, By Mouth, Daily, 0 Refills, Maintenance, 10/11/15 12:32:57 Start Date: 10/11/15 Status: Ordered oxybutynin 10 mg/24 hr oral tablet, extended release 1 tablet = 10 mg, By Mouth, Daily, # 30 tablet, 5 Refills, Maintenance, 06/04/17 10:26:00, ER Tablet Start Date: 06/04/17 Status: Ordered Proctozone HC 2.5% rectal cream with applicator 1 application, Rectally, 2 times a day, # 30 Gm, 0 Refills, Maintenance, 11/10/14 15:32:58, Cream Start Date: 11/10/14 Stop Date: 11/24/14 Status: Ordered SUMAtriptan 100 mg oral tablet 1 tablet = 100 mg, By Mouth, Once, 0 Refills, Maintenance, 10/11/15 12:33:43 Start Date: 10/11/15 Status: Ordered traZODone 150 mg oral tablet 1 tablet = 150 mg, By Mouth, Daily at bedtime, PRN Pain , Mild, 0 Refills, Maintenance, 10/11/15 12:30:22 Start Date: 10/11/15 Status: Ordered Vitamin D3 2000 intl units oral capsule 1 capsule = 2,000 International_Units, By Mouth, Daily, 0 Refills, Maintenance, 10/11/15 12:33:27 Start Date: 10/11/15 Status: Ordered Problem List Condition Effective Dates Status Health Status Inform ant Allergic rhinitis(Confirmed) Active Anxiety and depression(Confirmed) Active Esophageal reflux (GERD)(Confirmed) Active Hypertension(Confirmed) Active Migraine(Confirmed) Active Urinary incontinence, mixed(Confirmed) Active Social History Social History Type Response Smoking Status Never smoker entered on: 11/08/14 Sex
--- OUTSIDE RECORDS SUMMARY | 2024-04-20 00:04 | XMS_ITS | Continuity of Care Document ---
Author Organization [facility] Address [address] [place] [address]- Care Team Providers Care Parts Remover Name Role Phone Vernon Jamison MD Primary Care Physician Encounter [facility] [place] Date(s): 04/06/23 - 05/06/23 [facility] [address] [place] [address]- Attending Physician: Ritu Munoz Admitting Physician: Ritu Munoz Referring Physician: AdmtrRitu Allergies, Adverse Reactions, Alerts Substance Reaction Severity [...] ER Tablet Start Date: 06/04/17 Status: Ordered pantoprazole 40 mg oral delayed release tablet 1 tablet = 40 mg, By Mouth, Daily, # 90 tablet, 3 Refills, Maintenance, 04/06/23 9:48:00 EDT, EC Tablet, 160, cm, 04/06/23 9:22:00 EDT, Height Start Date: 04/06/23 Status: Ordered Proctozone HC 2.5% rectal cream [...] Date: 10/11/15 Status: Ordered Problem List Condition Confirmation Course Effective Dates Status Health St atus Informant Allergic rhinitis Confirmed Active Anxiety and depression Confirmed Active Esophageal reflux (GERD) Confirmed Active Hypertension Confirmed Active Migraine Confirmed Active Urinary incontinence, mixed Confirmed Active Obese class I Confirmed Active Social History Social History Type Response Smoking Status Never smoker entered on: 11/08/14 Sex Patient Care team information Care Team Personnel Name: Vernon Jamison MD Position: [facility] Physician - Primary Care Member Role: PCP Address: Address: [address] [place] [address]- Care Team Related Persons Name: LEEANN HARRELL Address: home [address] [place] [address] Name: EVELIO RICE Address: home [address] [place] [address]
--- OUTSIDE RECORDS SUMMARY | 2024-04-20 00:04 | XMS_ITS ---
Author Organization [facility] Address [address] [place] [address] Care Team Providers Care Child Care Attendant Name Role Phone CHAPITO MOE Primary Care Provider [phone] REASON FOR VISIT Refills Medications Medication SIG (Take, Route, Frequency, Duration) Notes Start Date End Date Status Clobetasol Propionate 0.05 % 1 application Externally Twice a day for 30 days Active Encounters Encounter Location Date Provider Diagnosis [facility] [address] [address] 02/18/2024 CHAPITO MOE Plan Of Treatment Medication Medication Name Sig Start Date Stop Date Notes Clobetasol Propionate 0.05 % 1 applicati on Externally Twice a day for 30 days Next Appt Details Provider Name:CHAPITO MOE , 04/17/2025 01:00:00 PM, [address] [place] [address], [place], [address], Progress Notes * Yoko EUBANKSDOB: [birth year] (58 yo F)Acc No.[id number]:02/18/2024 Patient:?Yoko EUBANKS :1965???Age:58 Y???Sex:Female Address:[address] [place] [address] * Refills? Refill Clobetasol Propionate Cream, 0.05 %, Externally, 30 gram, 1 application, Twice a day, 30 days, Refills=1 * true * Date:? Generated for Richardi cherelle/Carrie/eTransmitting on:?04/20/2024 12:03 AM EDT
--- OUTSIDE RECORDS SUMMARY | 2024-04-20 00:04 | XMS_ITS | Continuity of Care Document ---
Author Organization [facility] Address [address] [place] [address]- Care Team Providers Care Insurance Solicitor Name Role Phone Luz Elena Doran Primary Care Physician Encounter [facility] [place] Date(s): 08/31/19 - 10/12/[address] [address]- [facility] Attending Physician: Luz Elena Doran Admitting Physician: Luz Elena Doran Referring Physician: Luz Elena Doran Allergies, Adverse Reactions, Alerts Substance Reaction Severity Status ampicillin itch Active Medications acetaminophen/dextromethorphan/guaiFENesin/pseudoephedrine 325 mg-15 mg-200 mg- 30 [...]
--- OUTSIDE RECORDS SUMMARY | 2024-04-20 00:04 | XMS_ITS | Patient Health Record ---
Author Organization [facility] Address [address] [facility] [address] [place] [address] Care Team Providers Care Foiling Machine Adjuster Name Role Phone CHAPITO MOE Primary Care Provider Allergies Allergen (clinical drug ingredient) Drug/Non Drug Allergy documented on EMR Reaction Allergy Type Onset Date Status Penicillin Unknown Drug Allergy Active Results Component Value Reference Range Notes [id number] Reviewed date:02/18/2024 12:23:14 PM Interpretation: Performing Lab:[facility], [address] [place] [address], Phone - [phone], Director - MDJodry Notes/Report: TSH 4.020 0.450-4.500 uIU/mL Ferritin-[id number] Reviewed date:02/18/2024 12:23:16 PM Interpretation: Performing Lab:[facility], [address] [place] [address], Phone - [phone], Director - MDSulemadry Notes/Report: Ferritin 96 15-150 ng/mL Iron and TIBC-[id number] Reviewed date:02/18/2024 12:23:18 PM Interpretation: Performing Lab:[facility], [address] [place] [address], Phone - [phone], Director - MDJodry Notes/Report: Iron Bind.Cap.(TIBC) 367 250-450 ug/dL UIBC 264 131-425 ug/dL Iron 103 27-159 ug/dL Iron Saturation 28 15-55 % CBC, Platelet, No Differenti al-[id number] Reviewed date:02/18/2024 12:23:20 PM Interpretation: Performing Lab:[facility], [address] [place] [address], Phone - [phone], Director - MDJodry Notes/Report: WBC 6.9 3.4-10.8 x10E3/uL RBC 5.13 3.77-5.28 x10E6/uL Hemoglobin 14.9 11.1-15.9 g/dL Hematocrit 46.8 34.0-46.6 % MCV 91 79-97 fL MCH 29.0 26.6-33.0 pg MCHC 31.8 31.5-35.7 g/dL RDW 13.0 11.7-15.4 % Platelets 305 150-450 x10E3/uL Vitamin [id number] Reviewed date:02/18/2024 12:23:23 PM Interpretation: Performing Lab:[facility], [address] [place] [address], Phone - [phone], Director - Kris Notes/Report: Vitamin B12 545 426-4777 pg/mL Vitamin D, 86-Rhnlkhk-[id number] Reviewed date:02/18/2024 12:23:26 PM Interpretation: Performing Lab:[facility], [address] [place] [address], Phone - [phone], Director - Kris Notes/Report: Vitamin D, 25-Hydroxy 19.3 30.0-100.0 ng/mL Vitamin D deficiency has been defined by the [place] [employer] and an Endocrine Society practice guideline as a level of serum 25-OH vitamin D less than 20 ng/mL (1,2). The Endocrine Society went on to further define vitamin D insufficiency as a level between 21 and 29 ng/mL (2). 1. IOM ([place] [employer]). 2010. Dietary reference intakes for calcium and D. [place]: The National Academies Press. 2. Lauri MF, Landon [place], Reilly WAYNE, et al. Evaluation, treatment, and prevention of vitamin D deficiency: an Endocrine Society clinical practice guideline. JCEM. 2010; 96(7):1911-30. Hemoglobin O3i-[id number] Reviewed date:02/18/2024 12:23:28 PM Interpretation: Performing Lab:[facility], [address] [place] [address], Phone - [phone], Director - Kris Notes/Report: Hemoglobin A1c 6.2 4.8-5.6 % . Prediabetes: 5.7 - 6.4 Diabetes: >6.4 Glycemic control for adults with diabetes: <7.0 Lipid Panel-[id number] Reviewed date:02/18/2024 12:23:30 PM Interpretation: Performing Lab:[facility], [address] [facility], [place], Phone - [phone], Director - MDSujathay Notes/Report: Cholesterol, Total 248 100-199 mg/dL Triglycerides 124 0-149 mg/dL HDL Cholesterol 63 >39 mg/dL VLDL Cholesterol Giancarlo 22 5-40 mg/dL LDL Chol Calc ([facility]) 163 0-99 mg/dL Comp. Metabolic Panel (14)-3 Reviewed date:02/18/2024 12:23:33 PM Interpretation: Performing Lab:[facility] [place], [address], [place], Phone - [phone], Director - MDSujathay Notes/Report: Glucose 116 70-99 mg/dL BUN 13 6-24 mg/dL Creatinine 0.74 0.57-1.00 mg/dL eGFR 93 >59 mL/min/1.73 BUN/Creatinine Ratio 18 9-23 Sodium 141 134-144 mmol/L Potassium 4.1 3.5-5.2 mmol/L Chloride 104 96-106 mmol/L Carbon Dioxide, Total 22 20-29 mmol/L Calcium 9.7 8.7-10.2 mg/dL Protein, Total 7.3 6.0-8.5 g/dL Albumin 4.5 3.8-4.9 g/dL Globulin, Total 2.8 1.5-4.5 g/dL Bilirubin, Total 0.4 0.0-1.2 mg/dL Alkaline Phosphatase 76 44-121 IU/L AST (SGOT) 12 0-40 IU/L ALT (SGPT) 10 0-32 IU/L Albumin/Creatinine Ratio,Uri ne-[id number] Reviewed date:02/18/2024 12:23:37 PM Interpretation: Performing Lab:[facility], [address], [place], Phone - [phone], Director - MDSujathay Notes/Report: Creatinine, Urine 83.0 Not Estab. mg/dL Albumin, Urine 6.4 Not Estab. ug/mL Alb/Creat Ratio 8 0-29 mg/g creat Normal: 0 - 29 Moderately increased: 30 - 300 Severely increased: >300 Reason For Referral Reason mallampati class 4 Diagnosis 1 Snoring (R06.83) Referral Organization [facility] Referring Provider First Name [facility] Referring Provider [facility] Name [facility] Referred Provider Specialty Sleep Medici ne General Notes Another referral was sent. Satny Elham 10/19/2023 03:35:43 PM > Referral Priority Routine Reason snoring and Mallampa ti class IV Diagnosis 1 Snoring (R06.83) Referral Organization [facility] Referring Provider First Name [facility] Referring Provider Last Name [facility] Referring Provider [facility] Internal edicine Referred Provider Specialty Sleep Medici ne General Notes Faxed referral to [facility]. Please call patient to schedule. Referral Priority Routine Reason Evaluation and manag ement Diagnosis 1 Encounter for screen ing for malignant neoplasm of cervix (Z12.4) Referral Organization [facility] Referring Provider First Name [facility] Referring Provider Last Name [facility] Referring Provider [facility] Referred Provider Specialty Recycle Driver General Notes Referral faxed to ofe OBGYN - Office will call patient for scheduling.Tish Latraya 04/13/2024 03:56:26 PM > Referral Priority Routine Medications Medication SIG (Take, Route, Frequency, Duration) Notes Start Date End Date Status DULoxetine HCl 30 MG 1 capsule Orally Twice a day for 30 days Active Vitamin B12 1000 MCG 1 tablet Orally Onc e a day for 90 days Active Meclizine HCl 25 MG 1 tablet as needed Orally daily for 30 days 04/02/2022 Active Mapap Arthritis Pain 650 MG Take 1-2 tablets Orally 2 times daily as needed Active Clobetasol Propionate 0.05 % 1 application Externally Twice a day for 30 days Not-Taking traZODone HCl 50 MG 1 tablet at bedtime as needed Orally Once a day Active Prazosin HCl 2 MG 1 capsule at bedtime Orally Once a day for 30 days Active Vitamin D3 50 MCG (1999 UT) 1 capsule Orally Once a day for 30 days 08/21/2020 Active Protonix 40 MG 1 tablet Orally Once a day 05/03/2020 Active Loratadine 10 MG 1 tablet Orally Once a day for 90 days Active Yuvafem 10 MCG 1 tablet Vaginal Two times a Week for 30 days 04/13/2024 Active Metoprolol Succinate ER 50 MG 1 tablet Orally Once a day Active Ergocalciferol 1.25 MG (91708 UT) 1 capsule Orally weekly for 90 days 04/13/2024 Active Radha-D 24 Hour Ac tive Imitrex 100 MG 1 tablet at least 2 hours between doses as needed Orally Twice a day for 30 days 04/29/2021 Active Rosuvastatin Calcium 5 MG 1 tablet Orally Once a day for 30 days 04/13/2024 Active Naproxen Sodium 220 MG 1 capsule with fo od or milk as needed Orally every 12 hrs Active Ondansetron 4 MG 1 tablet on the tongue and allow to dissolve Orally Once a day for 15 days Active Fluticasone Propionate 50 MCG/ACT 1 spray in each nostril Nasally Once a day for 30 day(s) 12/28/2020 Active Cyclobenzaprine HCl 5 MG 1 tablet at bed time as needed Orally Once a day Dr. Elizabeth Active Sucralfate 1 GM 1 tablet on an empty stomach Orally Twice a day for 30 days 04/13/2024 Active Immunizations Vaccine Route Administration Date Status Comme nts COVID 19 Pfizer Unknown 01/22/2021 Administered COVID 19 Pfizer Unknown 02/18/2021 Administered Tdap Unknown 02/29/2020 Administered Social History Tobacco Use: Social History Observation Description Date Details (start date - stop date) Never Smoker NA - NA Tobacco Use/Smoking Question Answer Notes Are you a nonsmoker Problems Problem Type SNOMED Code ICD Code Onset Dates Problem Status W/U Status Risk Notes Problem Vitamin D deficiency (89896654) Vitamin D deficiency, unspecified (E55.9) Active confirmed Problem Mixed hyperlipidemia (575044371) Mixed hyperlipidemia (E78.2) Active confirmed Problem Moderate recurrent major depression (85574343) Major depressive disorder, recurrent, moderate (F33.1) Active confirmed Problem Generalized anxiety disorder (29398630) Generalized anxiety disorder (F41.1) Active confirmed Problem Gastro-esophageal reflux disease without esophagitis (722033148) Gastro-esophageal reflux disease without esophagitis (K21.9) Active confirmed Problem Cholelithiasis without obstruction (15414178) Calculus of gallbladder without cholecystitis without obstruction (K80.20) Active confirmed Problem Osteoarthritis (560049300) Polyosteoarthriti s, unspecified (M15.9) Active confirmed Problem Postmenopausal atrophic vaginitis (32718332) Postmenopausal atrophic vaginitis (N95.2) Active confirmed Problem Dysphagia (28078658) Dysphagia, unspecified (R13.10) Active confirmed Problem Paresthesia (finding) (72284097) Paresthesia of skin (R20.2) Active confirmed Problem Frequency of micturition (420422108) Frequency of micturition (R35.0) Active confirmed Vital Signs Heart Rate 96 /min 04/13/2024 Temperature 97.5 degrees Fahrenheit 04/13/2024 Blood pressure diastolic 80 mm Hg 04/13/2024 Oximetry 97 % 04/13/2024 Height 5'1 in 04/13/2024 Blood pressure systolic 122 mm Hg 04/13/2024 Weight 174.9 lbs 04/13/2024 BMI 33.04 kg/m2 04/13/2024 Procedures Procedure Date Ordered Date Performed Result Body Sit e MAMMOGRAM, SCREENING 10/13/2023 N/A Encounters Encounter Location Date Provider Diagnosis [address] [address] 10/13/2023 CHAPITO MOE Impaired fasting glu cose R73.01 ; Mixed hyperlipidemia E78.2 ; Abdominal pain R10.9 ; Generalized anxiety disorder F41.1 ; Snoring R06.83 ; Major depressive disorder, recurrent, moderate F33.1 ; Gastro-esophageal reflux disease without esophagitis K21.9 and Polyosteoarthritis, unspecified M15.[address] [address] 02/16/2024 CHAPITO MOE Chondrocostal juncti on syndrome [Tietze] M94.0 ; Tachycardia, unspecified R00.0 ; Vitamin D deficiency, unspecified E55.9 ; Mixed hyperlipidemia E78.2 ; Impaired fasting glucose R73.01 and Vitamin B12 deficiency anemia, unspecified D51.[address] [address] 04/13/2024 CHAPITO MOE Encounter for genera l adult medical examination without abnormal findings Z00.00 ; Mixed hyperlipidemia E78.2 ; Gastro-esophageal reflux disease without esophagitis K21.9 ; Generalized anxiety disorder F41.1 ; Major depressive disorder, recurrent, moderate F33.1 ; Vitamin D deficiency, unspecified E55.9 and Postmenopausal atrophic vaginitis N95.2 [facility] [address] [facility] [address] [place] [address] 08/11/2023 [facility] [address] [facility] [address] [place] [address] 08/16/2023 [facility] [address] [facility] [address] [place] [address] 08/17/2023 [facility] [address] [facility] [address] [place] [address] 02/02/2024 [facility] [address] [facility] [address] [place] [address] 02/12/2024 [facility] [address] [facility] [address] [place] [address] 02/17/2024 [facility] [address] [facility] [address] [place] [address] 02/17/2024 [facility] [address] [facility] [address] [place] [address] 02/18/2024 [facility] [address] [facility] [address] [place] [address] 02/18/[address] [place] [address] 04/18/[address] [facility] Assessments Encounter Date Diagnosis (ICD Code) Assessment Notes Treat ment Notes Treatment Clinical Notes 10/13/2023 Mixed hyperlipidemia (ICD-10 - E78.2) 10/13/2023 Impaired fasting glucose (ICD-10 - R73.01) 02/16/2024 Chondrocostal junction syndrome [Tietze] (ICD-10 - M94.0) 02/16/2024 Tachycardia, unspecified (ICD-10 - R00.0) 04/13/2024 Mixed hyperlipidemia (ICD-10 - E78.2) 04/13/2024 Encounter for genera l adult medical examination without abnormal findings (ICD-10 - Z00.00) 04/13/2024 Gastro-esophageal reflux disease without esophagitis (ICD-10 - K21.9) 02/16/2024 Vitamin D deficiency , unspecified (ICD-10 - E55.9) 10/13/2023 Abdominal pain (ICD-10 - R10.9) 10/13/2023 Generalized anxiety disorder (ICD-10 - F41.1) 02/16/2024 Mixed hyperlipidemia (ICD-10 - E78.2) 04/13/2024 Generalized anxiety disorder (ICD-10 - F41.1) 04/13/2024 Major depressive disorder, recurrent, moderate (ICD-10 - F33.1) 02/16/2024 Impaired fasting glucose (ICD-10 - R73.01) 10/13/2023 Snoring (ICD-10 - R06.83) 02/16/2024 Vitamin B12 deficiency anemia, unspecified (ICD-10 - D51.9) 10/13/2023 Major depressive disorder, recurrent, moderate (ICD-10 - F33.1) 04/13/2024 Vitamin D deficiency , unspecified (ICD-10 - E55.9) 04/13/2024 Postmenopausal atrophic vaginitis (ICD-10 - N95.2) 10/13/2023 Gastro-esophageal reflux disease without esophagitis (ICD-10 - K21.9) 10/13/2023 Polyosteoarthritis, unspecified (ICD-10 - M15.9) Plan Of Treatment Pending Test Test Name Order Date X ray : Abdomen, Kidneys, Ureters, and B ladder (KUB) 10/13/2023 MAMMOGRAM, SCREENING 10/13/2023 UA W/REFLEX MICROSCOPIC & CULTURE 2021 Future Test Test Name Order Date MAMMOGRAM, SCREENING 04/08/2023 Lipid Panel-[id number] 04/13/2024 Next Appt Details Provider Name:CHAPITO MOE , 04/17/2025 01:00:00 PM, [address] [place] [address], [place], [address], Insurance Providers Payer Name Payer Address Payer Phone Subscriber Number Group Number Insured Name Patient Relationship to Insured Coverage Start Date Coverage End Date [facility]) [address] [address] [place] [address] [id number] Yoko Eubanks Self - patient is the insured Medications Administered Medication Instructions Date of Administration Dosage Notes B12 01/23/2022 1 mL Medical (General) History Medical History History ICD Code Chronic pain Left knee pain Cervical radiculopathy Left shoulder joint pain and currently s he sees Dr. Pleitez Status post H. pylori Osteoarthritis multiple joints Palpitations Vitamin D deficiency Myofascial pain Generalized anxiety disorder/depression and she sees Dr. Hogan Personal history of COVID-19 gallstones Surgical History Surgery Date(Month/Year) hemorrhoids Bladder suspension C section 2002
--- OUTSIDE RECORDS SUMMARY | 2024-04-20 00:04 | XMS_ITS | Continuity of Care Document ---
Author Organization [facility] Address [address] [place] [address] [address] [place] [address]- Care Team Providers Care Supervisor [employer] Name Role Phone Vernon Jamison MD Primary Care Physician Encounter [facility] [place] Date(s): 10/21/22 - 11/20/[address] [place] [address]- Allergies, Adverse Reactions, Alerts Substance Reaction Severity [...] Team Personnel Name: Vernon Jamison MD Position: [facility] Physician (General Medicine) Member Role: PCP Address: Address: [address] [place] [address] Care Team Related Persons Name: LEEANN HARRELL Address: home [address] [place] [phone] Name: EVELIO RICE Address: home [address] [place] [address]
--- OUTSIDE RECORDS SUMMARY | 2024-04-20 00:04 | XMS_ITS | Continuity of Care Document ---
Author Organization [facility] Address [address] [place] [id number]- Care Team Providers Care Manager Retail Name Role Phone Vernon Jamison MD Primary Care Physician Encounter [facility] Date(s): 06/30/23 - 06/30/[address] [address] Discharge Disposition: A-D/C Home Attending Physician: Usman Mendoza MD Admitting Physician: Usman Mendoza MD Referring Physician: Usman Mendoza MD Allergies, Adverse Reactions, Alerts Substance Reaction Severity Status ampicillin itch Active Anbesol Maximum Strength Act tremayne Medications Colace sodium 100 mg oral capsule 100 mg, 1, capsule, By Mouth, 2 times a day, PRN, # 14 capsule, Refills 0, Tot. Refills 0, Maintenance, Constipation, 05/05/17 13:58:05, Print Requisition Start Date: 05/05/17 Stop Date: 05/12/17 Status: Ordered Loratadine By Mouth, Refills 0, Maintenance, 04/21/17 10:01:40 Start Date: 04/21/17 Status: Ordered Problem List Condition Confirmation Course Effective Dates Status Health St atus Informant Allergic rhinitis Confirmed Active Anxiety and depression Confirmed Active Esophageal reflux (GERD) Confirmed Active Hypertension Confirmed Active Migraine Confirmed Active Urinary incontinence, mixed Confirmed Active Obese class I Confirmed Active Procedures Procedure Date Related Diagnosis Body Site Status EGD - esophagogastroduodenoscopy 06/30/23 Completed Vital Signs Most recent to oldest [Reference Range]: 1 2 3 Height 163 cm (06/30/23 10:00 AM) Oxygen Saturation [94-100 %] 98 % (06/30/23 11:20 AM) 95 % (06/30/23 11:13 AM) 98 % (06/30/23 11:02 AM) Pulse Rate [55-90 bpm] 96 bpm *H* (06/30/23 11:02 AM) 104 bpm *H* (06/30/23 10:00 AM) Blood Pressure [90-138/55-84 mm Hg] 110/83mm Hg (06/30/23 11:20 AM) 131/88mm Hg (06/30/23 11:13 AM) 122/77mm Hg (06/30/23 11:02 AM) Respiratory Rate [16-30 br/min] 20 br/min (06/30/23 11:20 AM) 18 br/min (06/30/23 11:13 AM) 17 br/min (06/30/23 11:02 AM) Temperature [96.8-100.4 DegF] 98.4 DegF (06/30/23 10:00 AM) Mode of Delivery (Oxygen) Room air (06/30/23 11:20 AM) Room air (06/30/23 11:13 AM) Room air (06/30/23 11:02 AM) Blood pressure sites Arm, left (06/30/23 11:20 AM) Arm, left (06/30/23 11:13 AM) Arm, left (06/30/23 11:02 AM) Temperature Route Temporal (06/30/23 10:00 AM) Dry Weight 81 kg (06/30/23 10:00 AM) Social History Social History Type Response Smoking Status Never smoker entered on: 11/08/14 Sex Endoscopy study * Event Display: GG EGD Please click on pdf link to open report Note * Andi Swanson RN: PERFORM Event Display: Discharge/Transfer Note Hospital Authored Date: [id number] Nursing Discharge Note Entered On: 06/30/2023 11:34 EST Performed On: 06/30/2023 11:34 EST by Andi Swanson RN Nursing Discharge Note 2 Discharge Time : 06/30/2023 11:44 EST Andi Swanson RN - 06/30/2023 11:46 EST Discharge Level of Care at Discharge : Home/Fpc/Foster Care Patient Left Unit Via : Wheelchair Patient Accompanied Off Unit with : Responsible adult DC Instructions Provided & Signed by Pt : Yes Patient Understands D/C Instructions : Yes Patient Instructions Discharge Signed : Yes Did Pt have Specialty Bed or Wound Vac : No Andi Swanson RN - 06/30/2023 11:34 EST * Andi Swanson RN: PERFORM Event Display: Patient Education/Instruction Authored Date: [id number] Inpatient Adult Discharge Instructions [address] [place] [address] [address] Name: JOSEPHINE TREVINO : 1965 Visit: 06/30/2023 08:52:00 Current Date: 06/30/2023 11:34 Account: [id number] Inpatient Adult Discharge Instructions We would like to thank you for allowing us to assist you with your healthcare needs. The following includes patient education materials and information regarding your injury/illness. Our entire staffstrives to provide an excellent experience for our patients and their families. PLEASE ENSURE YOU FOLLOW-UP PER THE INSTRUCTIONS BELOW! ?? YOUR OPINION IS IMPORTANT TO US! Please complete the survey you may receive by mail or email. Your feedback will be used to make improvements to the healthcare experiences of our patients and their families. Surveys are administered by [employer] ?? If further treatment with your primary care physician or another doctor is recommended, it is important for you to keep the appointment. Call your primary care physician or return to the Emergency Department immediately if your condition worsens, fails to improve, or new symptoms develop. If you need to find a doctor, you can call [facility] Link for a referral at [phone] or toll free at [phone]) or log in to [email or web address].. ?? [facility], in keeping with [facility] guidance, no longer requires face masks for staff, patientsor visitors in most situations. Similiar to time spent indoors at other locations, there is the chance that you were exposed to repiratory viruses during your time with us (such as flu or COVID-19). If you develop symptoms concerning for a viral respiratory infection, please seek testing (and treatment if indicated) from your medical provider or home test kit. ?? You can view and manage your care through the patient portal or by using a health care krystyna of your choosing. [employer] is a website that allows you to securely view your medical information including your hospital discharge summary, office visit summaries, medications and follow-up visits. You can also request appointments, renew medications, and request access to your medical information using a health care krystyna of your choosing, or just ask a question. You can enroll at [email or web address] or register during your next office visit. You have been discharged from [facility], Patient Care Unit: ENDO. If you have any questions regarding these instructions after you leave, please call us and we will be happy to assist you. [facility] Your Care Team Attending Physician Kelly MAYEN, Usman Discharging Providers Kelly MAYEN, Usman Reason for Admission DYSPHAGIA Tests Performed Below is a partial list of the tests performed during your hospitalization. You may have had other tests and procedures not included in this list. Please discuss all test results with your provider. Advance Directive Health Care Proxy on File No Patient refuses to discuss Discharge Vitals Temperature: 98.4 DegF Height: 163 cm Pulse Rate:??96 bpm??High ?? Respiratory Rate: 20 br/min ?? Systolic Blood Pressure: 110 mm Hg ?? Diastolic Blood Pressure: 83 mm Hg ?? Oxygen Saturation: 98 % ?? Studies Pending All tests and labs ordered during this hospital stay have been completed unless listed below. Please discuss all pending results with your provider listed above in these instructions. ?? No incomplete studies found What to do next Instructions From Your Doctor Discharge Orders You Need to Schedule the Following Appointments Follow Up with??Vernon Jamison When:??In 0 days Discharge Medications NICKY GUTIERREZBRADFORDCHRIS :1965 Visit Date:06/30/2023 Medications: Please continue your medications until treatment is completed or stopped by your provider. Medications not listed below should be discontinued. Discuss any questions related to medications with your provider. What How Much When Why Instructions Next Dose Unchanged Docusate (Colace sodium 100 mg oral capsule) 1 capsule Oral Twice a day as needed for Constipation Post-operative pain Duration: 7 Days Unchanged Loratadine Oral Test Results Below is a partial list of the most recent Laboratory test results done prior to this discharge. You may have had other tests and procedures not included in this list. Please discuss all test resultswith your provider. Allergies (NKA means No Known Allergies) Anbesol Maximum Strength ampicillin??(itch) Problems Active Problems??(7) Allergic rhinitis?? Anxiety and depression?? Esophageal reflux (GERD)?? Hypertension?? Migraine?? Obese class I?? Urinary incontinence, mixed?? Education Materials Below is the list of Educational Leaflet Providered with your Discharge Instructions. Hiatal Hernia Discharge Instructions?? Valuables and Belongings I fully understand and agree that [facility] accepts no responsibility for all my personal property including clothing, toilet articles, radios, jewelry, dentures, hearing aids, rings, money, or any other property that is in my possession or is brought to me after admission. I understand certain valuables may be placed in a hospital safe for a short period of time. I understand that the hospital is not liable for loss or damage due to accident, fire, or other natural occurrence while said property is in the safe. I accept full responsibility for any personal property that I keep with me, and will not hold the hospital responsible in case of loss or disappearance. I acknowledge that i have been encouraged to send valuables and belongings home. ?? Date for Pt to Sign Valuables/Belongings: 06/30/23 10:00:00 ?? Valuables & Belongings ?? Clothes Electronic devices Jewelry Monetary Items Personal devices Miscellaneous Medications (Valuables) Valuables at Bedside Jacket, Pants, Shirt, Shoes ? Valuables Sent Home ? Valuables Sent to Security ? Other Discharge Information ? Case Management Discharge Plan?? Discharge Plan?? Discharge Level of Care at Discharge: Home/Fpc/Foster Care ?? Pulmonary Rehab Status?? Pulmonary Rehab Discharge Status?? Respiratory Rate: 20 br/min ? Common Emergency Awareness Tips IS IT A STROKE? Act FAST and Check for these signs: FACE Does the face look uneven? ARM Does one arm drift down? SPEECH Does their speech sound strange? TIME Call at any sign of stroke ?? Heart Attack Signs Chest discomfort: Most heart attacks involve discomfort in the center of the chest and lasts more than a few minutes, or goes away and comes back. It can feel like uncomfortable pressure, squeezing, fullness or pain. Discomfort in upper body: Symptoms can include pain or discomfort in one or both arms, back, neck, jaw or stomach. Shortness of breath: With or without discomfort. Other signs: Breaking out in a cold sweat, nausea, or lightheaded. Remember, MINUTES DO MATTER. If you experience any of these heart attack warning signs, call to get immediate medical attention! ?? Smoking can increase your chances of developing chronic health problems and can cause harmful effects to other family members in your house. If you smoke, you are strongly encouraged to quit. Please call [facility] [employer] Link at [phone] or [phone] ([phone]) or log in to [email or web address] for referrals to smoking cessation programs. ?? 843 Suicide & Crisis Lifeline is available 19/01 if you or someone you know needs to find a reason to keep living. By calling 422 you'll be connected to a skilled, trained counselor at a crisis center in your area. INPATIENT DISCHARGE INSTRUCTIONS SIGNATURE PAGE NICKY JOSEPHINE GUTIERREZ Location:[facility] Registration Date and Time:06/30/2023 08:52 EST Primary Care Physician: Yaquelin MAYEN, Vernon Engel, Attending Physician: Usman Mendoza MD, I JOSEPHINE TREVINO, have received the above patient education materials/instructions and have verbalized understanding. If ambulance or transport services are being used I further acknowledge being given a choice of service. ?? If you need to contact me, please call me at this number: . Patient/Product Tester Name: Patient/Product Tester Signature: Relationship to Patient: Witness Name/Signature: Date: * Andi Swanson RN: PERFORM, SIGN, VERIFY Event Display: Patient Education Handout Authored Date: [id number] * Andi Swanson RN: PERFORM Event Display: Patient Education Leaflets Authored Date: [id number] Hiatal Hernia Discharge Instructions ?? 671 ??Hiatal Hernia Discharge Instructions ??You must carefully read the Consumer Information Use and Disclaimer below in order to understand and correctly use this information?? About this topic Hiatal hernia is when part of the stomach is up in the chest. Normally, the stomach sits below the diaphragm, the muscle that divides the chest and abdomen. The diaphragm has a small opening in it tolet the esophagus, or swallowing tube, pass through. With a hiatal hernia, the stomach pushes up through that hole too.?? What care is needed at home? Ask your doctor what you need to do when you go home. Make sure??you ask questions ??? if you do not understand what the doctor says. This way you will know what you need to do. ??? Do not wear tight clothing over your belly. Wear clothes and belts that??are loose around your waist. ??? Raise the head of the bed up 6 to 8 inches (15 to 20 cm) or use a??wedge pillow. This position may keep stomach acid from getting into the esophagus. ?? What follow-up care is needed? Your doctor may ask you to make visits to the office to check on your progress. Be sure to keep these visits.?? What drugs may be needed? The doctor may order drugs to: ??? Lower stomach acid ??? Stop heartburn ??? Help with pain ??? Soften stools ?? Will physical activity be limited? You may have to limit your activity. Talk to the doctor about the right??amount of activity for you. ??? Avoid sports that involve lifting heavy things and bending. This can cause stress on your belly. ??? Avoid straining.??Having trouble passing stool or hard stools may make??your hernia worse. ?? What changes to diet are needed? ??Avoid large, heavy meals. Eat a few small meals throughout the day.Avoid drinking too much with meals.Wait at least 2 to 3 hours after eating before lying down or bending??over.Avoid foods that mayupset the stomach. Some people have an upset??belly after: ??? Coffee ??? Briarwood fruits and juices ??? Tomato products ??? Hot peppers ??? Fizzy drinks ??? Chocolate ??? Peppermint ??? Fatty foods ??? Beer, wine, and mixed drinks (alcohol) ?? What problems could happen? Lower blood levels of iron ??? No blood flow to hernia ?? What can be done to prevent this health problem? Keep a healthy weight. ??? Lose weight if you are overweight. ??? Avoid smoking. Ask for help if it's hard to quit. ??? Avoid foods that may upset the stomach. ??? Don???t overeat. Eat smallermeals. ??? Try to eat at least 2 to 3 hours before laying down. Avoid eating before sleeping at night. ??? When do I need to call the doctor? Heartburn that is worse when bending over or lying down ??? Swallowing problems ?? Teach Back: Helping You Understand The Teach Back Method helps you understand the information we are giving you. After you talk with the staff, tell them in your own words what you learned. This helps to make sure the staff has described each thing clearly. It also helps to explain things that may have been confusing. Before going home, make sure you can do these:? I can tell you about my condition. ??? I can tell you what changes I need to make with my diet or drugs. ??? I can tell you what I will do if I have more heartburn when I am??bending over or lying down. ?? Where can I learn more? NHS Choiceshttp://www.nhs.uk/conditions/hernia-hiatus/pages/introduction.aspxLast Reviewed Gjrc9912-99-36Ixgzelll Information Use and Disclaimer:This generalized information is a limited summary of diagnosis, treatment, and/or medication information. It is not meant to be comprehensive and should be used as a tool to help the user understand and/or assess potential diagnostic and treatment options. It does NOT include all information about conditions, treatments, medications, side effects, or risks that may apply to a specific patient. It is not intended to be medical advice or a substitute for the medical advice, diagnosis, or treatment of a health care provider based on the health care provider's examination and assessment of a patient???s specific and unique circ umstances. Patients must speak with a health care provider for complete information about their health, medical questions, and treatment options, including any risks or benefits regarding use of medications. This information does not endorse any treatments or medications as safe, effective, or approved for treating a specific patient. [employer] and its affiliates disclaim any warranty or liability relating to this information or the use thereof. The use of this information is governed by the Terms of Use, available at??https://www.woltersNoteuwer.com/en/know/ikmknrsw-gaesadjrjbxzk-hykqvMlsl Updated 08/21/21? Patient Care team information Care Team Personnel Name: Vernon Jamison MD Position: [facility] Physician - Primary Care Member Role: PCP Address: Address: [address] [place] [address]- [place] Care Team Related Persons Name: LEEANN HARRELL Address: home [address] [place] [address] Name: EVELIO RICE Address: home [address] [place] [address]
--- OUTSIDE RECORDS SUMMARY | 2024-04-20 00:05 | XMS_ITS | Continuity of Care Document ---
Author Organization [facility] Address [address] [place] [address]- Care Team Providers Care Pocket Setter Name Role Phone Vernon Jamison MD Primary Care Physician Encounter [facility] Date(s): 12/10/23 - 01/21/[address] [address] Attending Physician: Vernon Jamison MD Admitting Physician: Vernon Jamison MD Referring Physician: Vernon Jamison MD Allergies, Adverse Reactions, [...] Team Personnel Name: Vernon Jamison MD Position: S Physician - Primary Care Member Role: PCP Address: Address: [address] [place] [address]- Care Team Related Persons Name: LEEANN HARRELL Address: home [address] [place] [address] Name: EVELIO RICE Address: home [address] [place] [id number]
[2024-04-20 00:23] VITALS: BP 122/71; PULSE 76; RESP 18; TEMP 36.6; O2SAT 94
== END 2024-04-20 00:24 | disposition home or self-care (01) ==
PROVIDERS: Emergency Provider Internal Medicine; PCP Hospitalist
DX: I49.3 Ventricular premature depolarization (principal); K21.9 Gastro-esophageal reflux disease without esophagitis
CPT/HCPCS: 36415; 71046; 80053; 84484; 85025; 93005; 99283; 99285

== ENCOUNTER → 2024-04-19 21:21 | Outpatient (BNV) | payer OTHER, SELFPAY | PROVIDERS: Emergency Provider Internal Medicine; PCP Hospitalist; Visit Provider Internal Medicine Cardiovascular Disease | DX: R07.9 Chest pain, unspecified (principal) | CPT/HCPCS: 93010 ==

== ENCOUNTER 2024-08-30 08:46 | Outpatient (AMB) | payer OTHER, SELFPAY ==
--- NOTE | 2024-08-30 08:54 | A.OFFVIS_ITS ---
Vital Signs 08/30/24 08:58 Height 5 ft 4 in Weight 175 lb BMI 30.0 Intake Visit Reasons: FC-RT thumb with foreign body, sliver Intake Note: Yoko 58 yr old right hand dominant presents today for a new patient visit for a evaluation for her right thumb. States she has a sliver of glass in her thumb from about 2-3 weeks. States there was something stuck in the couch, states it was a a thin glass that went in her thumb. She was able to remove some of it but feels she still has glass. Seen at [facility] urgent care where xray were done and referred her to orthopedics. Denies numbness, tingling or locking of any finger. She has finished taking her ABX that was given by urgent care. Information Interpreted: clinical only (Maryr) Accompanied by: son Reji Allergies ampicillin Adverse Reaction (Verified 08/30/24 09:09) Hives HPI HPI FC-RT thumb with foreign body, sliver: Details: Yoko is a 58 year old right hand dominant woman who presents for a foreign body in her right thumb, DOI: 08/18/24. She was seen at [place] urgent care on 08/20/24 and given a course of Abx, which she has completed. She is seen with her son who acts as a data analytics chief scientist She denies being able to feel any foreign body in her thumb, and denies any pain with normal activities. She says she was cleaning her couch when she caught her thumb on a large sliver of glass. She says she has removed some of the glass herself at home, but is worried there is still some present. [facility] Medical History (Updated 08/30/24 @ 09:12 by YANCY Khan) delivery delivered Social History (Updated 08/30/24 @ 09:12 by YANCY Khan) Current occupational status: unemployed Current occupation: rt hand Review of Systems Const All systems reviewed & are unremarkable except as noted in HPI and below Physical Exam Vital Signs: BMI result Body Mass Index 30.0 Const General: cooperative, healthy appearing and no acute distress Orientation/consciousness: patient oriented x3 HEENT Head: Yes normocephalic and Yes atraumatic Eyes EOM: EOMs intact bilaterally Resp Effort & Inspection: normal respiratory effort and able to speak in complete sentences Cardio Jugular venous distension: no JVD Skin General skin exam: turgor normal Rashes: no rashes Neuro General: patient oriented x3 Extrem Other: Evaluation of Right Upper Extremity: The patient is alert, oriented, and in no acute distress Neuro: Median, Ulnar, Radial nerves motor and sensory intact and sensation is normal to the tips of all digits Vascular: Cap refill brisk ROM: She can make a fist and extend all her digits Skin: She demonstrates the shard of glass entered just distal to the thumb IP flexion crease No palpable mass No focal area of tenderness No lacerations or abrasions or evidence of open wound General: No Ecchymosis. No Erythema or evidence of infection. Radiographs: 3 views of the right hand, attention thumb, were taken and viewed by me today in clinic. They show no fractures, dislocations, or any evidence of foreign bodies. Psych Appearance: grossly normal Affect: normal affect Attitude: cooperative Assessment & Plan Assessment & Plan (1) Foreign body of right thumb: Code(s): S60.351A - Superficial foreign body of right thumb, initial encounter Category: Medical Plan Assessment & Plan: 1. Right thumb foreign body DOI: 08/18/24, removed by patient Subsequent urgent care visit concerned about retained foreign body No foreign body seen on radiographs today, or on clinical exam I educated her about this condition I discussed operative and non-operative treatment options The patient denies any pain and denies feeling any retained foreign body at this time At this point, surgery is not indicated at this time, and they expressed understanding. If she develops any new pain, or evidence of infection, we can discuss treatment options Otherwise, no intervention warranted She can follow up prn Scribed for Denae Grubbs MD by Thai Chan, medical laboratory technician, on 08/30/24 at 9:25 AM, EST. Orders: Orders XR hand RT min 3V Today M79.641 - Pain in right hand Coding Level of Care Code New Pt Level 3 (667[address]) Diagnoses Foreign body of right thumb S60.351A
--- OUTSIDE RECORDS SUMMARY | 2024-08-30 09:27 | XMS_ITS ---
Author Organization [facility] Address [address] [place] [id number] Care Team Providers Care Terminal Gauger Supervisor Name Role Phone CHAPITO MOE Primary Care Provider REASON FOR VISIT Cardio Referral Encounters Encounter Location Date Provider Diagnosis [address] [phone] 07/13/2024 CHAPITO MOE Plan Of Treatment Next Appt Details Provider Name:CHAPITO MOE , 04/17/2025 01:00:00 PM, [address] [place] [address], [place], [phone], Progress Notes * Yoko EUBANKSDOB: [birth year] (58 yo F)Acc No.[id number]:07/13/2024 Patient:?Yoko EUBANKS :1965???Age:58 Y???Sex:Female Address:[address] [place], [place] [address] [address] * true * Date:? Generated for Darlene villarreal/Carrie/eTransmitting on:?08/30/2024 09:27 AM EST
--- OUTSIDE RECORDS SUMMARY | 2024-08-30 09:27 | XMS_ITS | Clinical Summary ---
Author Organization [facility] Address [address] [place] [address] Support Name Relationship Address Phone Sofi Guan Son [address] [place] [address] Care Team Providers Care Traveling Freight Agent Name Role Phone Fauzia Woodard-Glenny Primary Care Provider Source Comments PLEASE NOTE, if this patient is a minor, it may be UNLAWFUL to discuss sensitive information that is contained in these records (such as FAMILY PLANNING, MENTAL HEALTH or SUBSTANCE ABUSE) with the minor patient's parent or other person without the patient's specific authorization.[facility] Allergies Active Allergy Reactions Criticality Noted Date Comments Ampicillin Rash High Medications sertraline (ZOLOFT) 50 mg tablet Take 50 mg by mouth once daily 0 8 Active traZODone (DESYREL) 50 mg tablet 0 8 Active topiramate (TOPAMAX) 25 mg tablet Take 25 mg by mouth once daily 0 9 Active CALMOSEPTINE 0.44-20.6 % ointment 0 9 Active diclofenac sodium (VOLTAREN) 1 % gelIndications:Tra pezius muscle spasm Apply topically 2 (two) times daily 100 g 1 9 Active VITAMIN B-12 1,000 mcg tabletIndications: Vitamin B12 deficiency take 1 tablet by mouth once daily 30 Tab 5 9 Active fluticasone propionate (FLONASE) 50 mcg/actuation nasal sprayIndications:O ther allergic rhinitis instill 1 spray into each nostril twice a day 16 g 2 9 Active SUMAtriptan succinate (IMITREX) 100 mg tabletIndications: Chronic tension-type headache, not intractable take 1 tablet by mouth once daily if needed for migraines . MAY REPEAT IN 2 HOURS IF NO RELIEF (MAX DAILY DOSE OF 2 TABLETS IN 24 HOURS) 10 Tab 1 9 Active bismuth subsalicylate (PEPTO BISMOL) 262 mg/15 mL suspensionIndicati ons:H. pylori infection Take 30 mL by mouth 4 (four) times daily 1680 mL 9 Active orphenadrine citrate (NORFLEX ER) 100 mg 12 hr tabletIndications: Monoarthritis Take 1 Tab by mouth 2 (two) times daily as needed for muscle spasms 60 Tab 2 0 Active famotidine (PEPCID) 20 mg tabletIndications: Gastroesophageal reflux disease, esophagitis presence not specified Take 1 Tab by mouth 2 (two) times daily as needed for heartburn 60 Tab 2 0 Active cholecalciferol, vitamin D3, 25 mcg (1,000 unit) capsuleIndications :Takes daily multivitamins Take 1 Cap by mouth once daily 90 Cap 3 0 Active acetaminophen (TYLENOL 8 HOUR) 650 mg CR tabletIndications: Monoarthritis Take 1 Tab by mouth every 8 (eight) hours as needed for pain 90 Tab 2 0 Active lidocaine (LIDODERM) 5 % patchIndications:M onoarthritis Place 1 Patch onto the skin every 12 (twelve) hours 12 hours on and off 60 Patch 2 0 Active gabapentin (NEURONTIN) 300 mg capsuleIndications :Paresthesia Take 1 Cap by mouth nightly at bedtime as needed (nerve pain) 30 Cap 2 0 Active baclofen (LIORESAL) 10 mg tablet Take 10 mg by mouth once daily 0 Active DULoxetine (CYMBALTA) [address] capsule Take 20 mg by mouth once daily 0 Active cholecalciferol, vitamin D3, (VITAMIN D3) 1,250 mcg (50,000 unit) capsuleIndications :Vitamin D deficiency TAKE 1 CAPSULE BY MOUTH ONCE WEEKLY 12 Capsule 0 Active Active Problems Problem Noted Date Diagnosed Date H. pylori infection 06/15/2019 Overview (06/15/2019): 06/15/19 - tx sent Vitamin B12 deficiency 10/28/2018 Subclinical hypothyroidism 10/28/2018 Snoring - sleep study done 02/10/14 12/06/2017 Overview (12/06/2017): 02/10/14 Sleep study done at [facility]. INTERPRETATION: Sleep architecture and staging was remarkable for frequent awakenings and no REM sleep. The patient had to leave at 1:30 AM and refused to stay through the night so there was only about 2 hours of sleep time.There was mostly stable breathing with saturations around 96-97% in lateral NREM with some periods with flow limitation and a few mild hypopneas but overall they were within the normal limits of AHI < 5. There was a short period of supine NREM with more flow limitation and snoring. There was no REM so the severity may be significantly underestimated. DIAGNOSTIC CLASSIFICATION: AXIS A: 1. Snoring (327.20).AXIS B: 1. Polysomnogram. AXIS C: 1. Depression, anxiety, migraines. RECOMMENDATIONS: 1. If there is still a concern for sleep apnea, the patient should return for a full night study or do a home sleep study. 2. Treatment for insomnia can also first be considered. Benign paroxysmal positional vertigo due to bilateral vestibular disorder 10/05/2017 Overview (10/05/2017): 07/09/17 - vestibular rehab at [facility]: eval + 3 F/U's / no-showed 4 visits. 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 07/13/17 - [facility]: c/o L knee pain. xrays knee performed and reviewed: moderate patellofemoral arthritic changes particularly on the retropatellar surface of the patella on lateral view. Plan: referral to Pt, Meloxicam 15 mg PO QD 07/24/17 - [facility]: c/o mid back pain. Had done physical therapy and tried ibuprofen w/o relief. xrays thoracic spine ordered and reviewed: degenerative changes with loss of disc height at multiple levels with facet arthrosis. Plan: pt declines cortisone injections. Will try another course of PT. F/U 6 weeks. 11/03/18 - Lumbar spine xray (ordered by Dr. Pleitez): narrowing of the L4-L5 disc consistent with DDD, a new finding since 09/09/18. Facet joint disease at L4-L5 again seen. Age-related cataract of both eyes 08/10/2016 Overview (08/10/2016): F/u [facility] [address] [facility] Pinguecula of both eyes 08/10/2016 Overview (08/10/2016): F/u [facility] [address] [facility] Pancreatic lesion 08/27/2015 Overview (10/17/2015): MRI of abdomen done at [facility] 08/17/15 which revealed hepatic lesion up to 3.4 cm consistent with hemangioma, right adrenal adenoma which measures up to 3.0 cm and a 0.8 cm T2 hyperintensity in uncinate process statistically most likely side branch billy-ductal papillary mucinous neoplasm. Seen by GI 10/14/15 to repeat MRI in a year. Liver hemangioma 08/27/2015 Overview (10/17/2015): MRI of abdomen done at [facility] 08/17/15 which revealed hepatic lesion up to 3.4 cm consistent with hemangioma, right adrenal adenoma which measures up to 3.0 cm and a 0.8 cm T2 hyperintensity in uncinate process statistically most likely side branch billy-ductal papillary mucinous neoplasm. No further w/u needed for liver hemangioma. Adenoma of right adrenal gland 08/27/2015 Overview (08/27/2015): MRI of abdomen done at [facility] 08/17/15 which revealed hepatic lesion up to 3.4 cm consistent with hemangioma, right adrenal adenoma which measures up to 3.0 cm and a 0.8 cm T2 hyperintensity in uncinate process statistically most likely side branch billy-ductal papillary mucinous neoplasm. Allergic urticaria, seasonal 04/23/2015 Overview (05/01/2015): CXR 04/30/15 at [facility] revealed no acute pulmonary process. Stress incontinence, s/p ret ropubic midurethral sling and cystoscopy on 05/05/[address] Eloy Rawls 03/02/2015 Allergic rhinosinusitis 05/15/2014 Low back pain 09/23/2012 Overview (05/19/2019): 09/09/18 - Lumbar xray: negative 01/26/19 - PT [facility] 2x[facility]wk for 4-5 wks 05/07/19 [facility] MR Lumbar Spine WO Impression: Gentle left convex lumbar spine curvature apex at L3 - L4 where there is far lateral annular disc tear and mild left neuroforaminal narrowing. No evidence of central stenosis within the lumbar spine. Neck pain on left side 08/11/2011 Overview (03/28/2013): WITH LEFT PERISCAPULAR PAIN Anxiety and depression 09/06/2010 Overview (07/10/2015): Psych f/u with [facility] in [place]. Insomnia due to anxiety and fear 09/06/2010 Overview (04/08/2016): Psych f/u Dr. Hogan. Chronic headaches 05/28/2010 Overview (03/28/2013): MRI Brain 03/27/10: Maxillary Sinus retention cysts, Left maxillary air fluid levels Eczema/urticaria neck & chest 03/06/2009 Overview (08/24/2013): Seen Derm 08/22/09. F/u extracorporeal technician Dr. Fall. HTN (hypertension)- diet control 01/31/2009 Overview (11/27/2014): Diet control Obesity 01/31/2009 Vitamin D deficiency 01/31/2009 Overview (03/28/2013): =7. Allergic rhinitis due to allergen Overview (02/21/2019): F/u Dr. Fall. 02/07/19 - Seen by extracorporeal technician [facility] ([facility]) Dr. Dev Bond - allergic rhinitis well controlled, refer to derm for urticaria GERD (gastroesophageal reflux disease) Vulvar candidiasis Overview (08/07/2014): [facility] [employer] 07/26/14. Resolved Problems Problem Noted Date Diagnosed Date Resolved Date History of prediabetes 10/01/201710/21 H/O mammogram 04/30/16, 04/15/17 - negative 06/13/2017 10/04/2017 H/O colonoscopy 12/17/15 neg repeat 202506/13/2017 10/04/2017 H/O retropubic midurethral s ling and cystoscopy 05/05/17 06/13/2017 06/13/2017 Immunizations Name Administration Dates Next Due Hep B, Adult/Adol (ENERGIX/RECOMBIVAX) 2,05/28/2010,03/06/2009 History Of Varicella 01/31/2009 INFLUENZA, SEASONAL, INJECTABLE 04/10/2011 MMR (MMR II/Priorix) 03/06/2009,02/10/2009 PPD 01/31/2009 TDAP 02/29/2020,01/31/2009 Td(adult),2 Lf tetanus toxoi d,preservative free 03/06/2009 Family History Medical History Relation Name Comments Hypertension Father Relation Name Status Comments Father Social History Tobacco Use Types Packs/Day Years Used Date Smoking Tobacco: Never Smokeless Tobacco: Never Alcohol Use Standard Drinks/Week Comments No 0 (1 standard drink = 0.6 oz pur e alcohol) Social Connections Answer Date Recorded Social Connections and Isolation 0 02/16/2019 Financial Resource Strain Answer Date R ecorded Financial Resource Strain 0 2018 Stress Answer Date Recorded Stress 0 02/16/2019 Physical Activity Answer Date Recorded Physical Activity 0 02/16/2019 Food Insecurity Answer Date Recorded Food 0 02/16/2019 Transportation Needs Answer Date Record ed Transportation 0 02/16/2019 Housing Stability Answer Date Recorded Housing 0 02/16/2019 Safety and Environment Answer Date Phillip rded Safety 0 02/16/2019 Utilities Answer Date Recorded Utilities 0 02/16/2019 Employment Answer Date Recorded Employment 0 02/16/2019 Comments No Sex and Gender Information Value Date Recorded Sex Assigned at Female 04/16/2017 11:34 AM PDT Legal Sex Female 11:36 AM PDT Gender Identity Female 04/16/2017 11:34 AM PDT Sexual Orientation Straight 04/16/2017 11 :34 AM PDT Last Filed Vital Signs Vital Sign Reading Time Taken Comments Blood Pressure 134/90 02/29/2020 10:54 AM EDT Pulse 103 02/29/2020 10:54 AM EDT Temperature 37.1 ??C (98.8 ??F) 02/29/2020 10:54 AM E DT Respiratory Rate 16 02/29/2020 10:54 AM EDT Oxygen Saturation 98% 02/15/2020 2:14 PM EDT Inhaled Oxygen Concentration - - Weight 78.9 kg (174 lb) 02/29/2020 10:54 AM EDT Height 162.6 cm (5' 4 ) 02/29/2020 10:54 AM EDT Body Mass Index 29.87 02/29/2020 10:54 AM EDT Plan of Treatment Not on file Insurance [facility] Care Teams Traveling Freight Agent Relationship Specialty Start Date End Date Fauzia Woodard FNP-C [facility] [place] [address] PCP - General 02/17/22
--- OUTSIDE RECORDS SUMMARY | 2024-08-30 09:27 | XMS_ITS | Data Portability ---
Author Organization [facility] [address] Address [address] [place] [address] Assessment No assessment recorded. Plan of Treatment Reminders Order Date Submit Date Provider Last Modified By Organization Details Last Modified Time Details Appointments None recorded. Lab None recorded. Referral None recorded. Procedures None recorded. Surgeries None recorded. Imaging None recorded. Medication Orders naproxen 500 mg tablet 2022 023 [employer] [id number], [address] [place], [address], 18:37:07 Patient TargetsNo targets recorded. Patient Instructions Encounter Date Encounter Id Patient Instructions Last Modified By Organization Details Last Modified Time 01/13/2023 [id number] headache: care instructions [email or web address] Not available 01/13/2023 18:37:05 Reason for Referral None Reported. Problems Name Problem SNOMED Code Status Onset Date Resolution Date Notes Provider Name and Address Organization Details Recorded Time Migraine [id number] Active 023 [facility] 01/13/2023 17:36:49 Problem Notes None recorded. Procedures Surgical History Date Name Laterality Status Provider Name and Address Organization Details Recorded Time section completed [facility] 01/13/2023 17:37:06 hemorrhoidectomy completed SANDRA [facility] 01/13/2023 17:37:15 Imaging Results None recorded. Procedure Notes None recorded. Medical Equipment None Reported. Allergies Allergen ID Allergen Name Allergen Category Reaction Reaction Severity Criticality Documentation Date Start Date Code Code System Note Provider Name and Address Organization Details Recorded Time 431775 ampicilli n medicatio n Not available Not available Not available 01/13/2023 733 [facility] - [facility] 3 17:34:20 Medications Name Sig Start Date Stop Date Status Note LastModified by Organization Details LastModified Time cyanocobala min (vit B-12) ER 1,000 mcg tablet,exte nded release TAKE ONE TABLET BY MOUTH ONCE A DAY 01/13 completed Not Available Not Available Not Available trazodone 50 mg tablet TAKE ONE TABLET BY MOUTH EVERY EVENING 01/13 completed Not Available Not Available Not Available fluconazole 150 mg tablet TAKE 1 TABLET BY MOUTH THEN REPEAT DOSE IN 72 HOURS IF SYMPTOMS PERSIST 01/13 completed Not Available Not Available Not Available sumatriptan 100 mg tablet TAKE ONE TABLET BY MOUTH TWICE A DAY NEEDED. TAKE AT LEAST 2 HOURS APART FROM EACH OTHER active Not Available Not Available No t Available clobetasol 0.05 % topical cream APPLY A THIN LAYER TO THE AFFECTED AREA S) TWICE DAILY FOR 7 DAYS THEN TWICE WEEKLY 01/13 completed Not Available Not Available Not Available topiramate 25 mg tablet TAKE ONE TABLET BY MOUTH EVERY DAY NEEDED 01/13 completed Not Available Not Available Not Available metronidazo le 500 mg tablet TAKE ONE TABLET BY MOUTH TWICE A DAY FOR 7 DAYS 01/13 completed Not Available Not Available Not Available prednisolon e acetate 1 % eye drops,suspe nsion INSTILL ONE DROP IN EACH EYE FOUR TIMES A DAY 01/13 completed Not Available Not Available Not Available trazodone 100 mg tablet TAKE TWO TABLETS BY MOUTH EVERY DAY AT BEDTIME 01/13 completed Not Available Not Available Not Available meclizine 25 mg tablet TAKE ONE TABLET BY MOUTH EVERY DAY NEEDED 01/13 completed Not Available Not Available Not Available omeprazole 20 mg capsule,del ayed release TAKE ONE CAPSULE BY MOUTH EVERY DAY 01/13 completed Not Available Not Available Not Available Banophen 25 mg capsule TAKE ONE CAPSULE BY MOUTH AT BEDTIME NEEDED 01/13 completed Not Available Not Available Not Available diclofenac sodium 50 mg tablet,rhiannon yed release TAKE ONE TABLET BY MOUTH TWICE A DAY NEEDED 01/13 completed Not Available Not Available Not Available zolpidem 10 mg tablet TAKE ONE TABLET BY MOUTH EVERY DAY NEEDED 01/13 completed Not Available Not Available Not Available ondansetron 4 mg disintegrat ing tablet DISSOLVE ONE TABLET ON TONGUE EVERY DAY FOR 15 DAYS 01/13 completed Not Available Not Available Not Available fluticasone propionate 50 mcg/actuati on nasal spray,suspe nsion USE ONE SPRAY IN EACH NOSTRIL ONCE A DAY active Not Available Not Available No t Available sodium fluoride 1.1 % dental gel USE BEFORE BED 01/13 completed Not Available Not Available Not Available doxycycline hyclate 100 mg tablet TAKE ONE TABLET BY MOUTH TWICE A DAY FOR 7 DAYS 01/13 completed Not Available Not Available Not Available prazosin 2 mg capsule TAKE ONE CAPSULE BY MOUTH EVERY DAY AT BEDTIME 01/13 completed Not Available Not Available Not Available naproxen 500 mg tablet Take 1 tablet twice a day by oral route as needed for 5 days. 2022 active Not Available Not Available Not Avai lable Ventolin HFA 90 mcg/actuati on aerosol inhaler INHALE 1 PUFF EVERY 6 HOURS NEEDED FOR SHORTNESS OF BREATH OR WHEEZING 01/13 completed Not Available Not Available Not Available magnesium 200 mg tablet TAKE ONE TABLET BY MOUTH EVERY DAY NEEDED 01/13 completed Not Available Not Available Not Available Allergy Relief (loratadine ) 10 mg tablet TAKE ONE TABLET BY MOUTH EVERY MORNING NEEDED 01/13 completed Not Available Not Available Not Available duloxetine 60 mg capsule,del ayed release TAKE TWO CAPSULES ONCE DAILY AFTER BREAKFAST 01/13 completed Not Available Not Available Not Available FeroSul 325 mg (65 mg iron) tablet TAKE ONE TABLET BY MOUTH ONCE A DAY 01/13 completed Not Available Not Available Not Available cholecalcif juhi (vitamin D3) 50 mcg (2,000 unit) capsule TAKE ONE CAPSULE BY MOUTH ONCE A DAY 01/13 completed Not Available Not Available Not Available Paxlovid 300 mg (150 mg x 2)-100 mg tablets in a dose pack TAKE THREE TABLETS BY MOUTH TWICE A DAY 01/13 completed Not Available Not Available Not Available Vitals Date Recorded Body height Body mass index (BMI) Body weight Respiratory rate Body temperature Oxygen saturation Oxygen saturation in Arterial blood by Pulse oximetry Heart rate Systolic blood pressure Diastolic blood pressure Provider Name and Address Organization Details Last Updated DateTime 3 162.56 cm 30.4 kg/m2 66381.8 5 g 18 /min 98.5 [degF] 96 % 96 % 85 /min 123 mm[Hg] 81 mm[Hg] SANDRA DENTONDEEDEE [place] - [facility] 17:40:17 Social History Question Answer Notes LastModified by Organizat ion Details LastModified Time Tobacco Smoking Status Never Smoker SANDRA DENTONDEEDEE null, [place] - [facility] 01/13/2023 17:37:27 What Is Your Level Of Alcohol Consumption? None Information not available 01/13/2023 Are You Currently Employed? No Information not available 01/13/2023 Have You Had Direct Contact, Or Contact During Intimacy, With Monkeypox Rash, Scabs, Or Body Fluids From A Person With Monkeypox? No Information not available 01/13/2023 Do You Use Any Illicit Or Recreational Drugs? No Information not available 01/13/2023 Have You Recently Traveled Abroad? No Information not available 01/13/2023 Are You Currently In School? No Information not available 01/13/2023 Do You Or Have You Ever Used Any Other Forms Of Tobacco Or Nicotine? No Information not available 01/13/2023 Sex: Unknown Functional Status None recorded. Mental Status None recorded. Family History Relationship Description Onset Age of this Age Resolved Age Notes LastModified by Organization Details LastModified Time Father No current problems or disability Not available 12/27 17:36:52 Mother No current problems or disability Not available 12/27 17:36:52 Medical History No medical history recorded. Gynecological History Statement/Question Response Is there any chance of ? No Obstetrics History GPAL:G 0 P 0 0 0 0 Past Encounters Encounter ID Performer Location Encounter Start Date Encounter Closed Date Diagnosis/Indication Diagnosis SNOMED-CT Code Diagnosis ICD10 Code Diagnosis Note [id number] [address] [employer] [address] [place] [address] 05/14/2021 14:50:15 05/14/2021 17:07:23 [id number] Linwood Ballard MD [address] [facility] [place] [address] 01/13/2023 16:39:21 01/13/2023 18:40:03 Headache 19304220 R51.9 Several possible conditions can be the main cause behind your pain; they can be related to ear infections , jaw joint issues, teeth problems, and many others. The cause today is not clear, but differenti al includes Temporoman dibular joint disorders (TMJ), Otitis media (middle ear infection) , Occipital neuralgia, and Mastoiditi s.At this time we will try an Anti-infla mmatory medication and advised you to see PCP if continues or go to ER if worsens Health Concerns Section Related Observation LastModified by Organization Detai ls LastModified Time None Recorded Concern Status LastModified by Organization Details LastModified Time None Recorded Advance Directives Directive None Recorded Payers Encounter Date Sequence Insurance Name Policy Number Policy Duenas Covered Member ID Duenas Member ID Guarantor Name 05/14/2021 1 [facility] (MEDICAID HMO) [id number] Sanaa Al Mousawy [id number] Sanaa Almousawy 01/13/2023 1 [facility] [employer] (MEDICAID HMO) [id number] Sanaa Al Mousawy [id number] Sanaa Almousawy Notes Date Note Type Note Provider Name and Address Organization Details Recorded Time 01/13/2023 text/html Headache UCReported bypatient.Locatio n:unilateral Quality:not the worst headache ever Severity:pain level /10; at times has felt like 10/10/ feels sharp shooting pain Alleviating factors:nothing gives relief Associated Symptoms:no vomiting; no sensitivity to light; no confusion; no slurred speech; no preceeding aura; no double vision; normal feeling/sensation ; no motor paralysis; no dizziness; no sleep disturbances; no nosebleeds; no hoarseness; no sore throat; no hearing loss; no cold symptoms; no tearing/watery eyes Linwood Ballard MD [facility] [place], [address], [place] - [facility] 01/14/2023 10:32:09 OBGyn Episode No OBEpisode recorded.
--- OUTSIDE RECORDS SUMMARY | 2024-08-30 09:28 | XMS_ITS | Clinical Summary ---
Author Organization [facility] Address [address] [place] [address] Care Team Providers Care Lawn Care Worker Name Role Phone Unavailable Primary Care Provider Unavailabl e Social History Tobacco Use Types Packs/Day Years Used Date Smoking Tobacco: Never Assessed Sex and Gender Information Value Date Recorded Sex Assigned at Not on file Gender Identity Not on file Sexual Orientation Not on file Plan of Treatment Health Maintenance Due Date Last Done Comments Hepatitis B Vaccines (1 of 3 - 3-dose series) 1964 Hepatitis C Screening 1964 COVID-19 Vaccine (#1) 04/29/1965 Depression Screening 1976 Preventative Health Evaluation 1982 Cervical Cancer Screening (Pap Smear) 1985 Colon Cancer Screening (Colonoscopy) 2009 Breast Cancer Screening (Mammogram) 2014 Shingrix-Zoster Vaccine (1 o f 2) 2014 Influenza Vaccine (#1) 2024 04/10/2011 DTap / Tdap / Td (4 - Td or Tdap) 02/28/2030 02/29/2020, 03/06/2009, 01/31/2009 Pneumococcal Vaccine Aged Out No long er eligible based on patient's age to complete this topic RSV Ped < 20 months Aged Out No longe r eligible based on patient's age to complete this topic
--- OUTSIDE RECORDS SUMMARY | 2024-08-30 09:29 | XMS_ITS ---
Author Organization [facility] Address [address] [place] [address] Care Team Providers Care Head Scorer Name Role Phone CHAPITO MOE Primary Care Provider Reason For Referral Reason Evaluation and manag ement Diagnosis 1 Palpitations (R00.2) Diagnosis 2 Chest pain, unspecif ied (R07.9) Referral Organization [facility] Referring Provider First Name CHAPITO Referring Provider Last Name PAYAL Referring Provider Speciality Internal M edicine Referred Provider Specialty Cardiology General Notes Referral sent to [facility] Cardiology ([address], [address] [place] [address] ) - Office will call pt for scheduling., Charles Winston 05/16/2024 04:18:55 PM > Referral Priority Routine REASON FOR VISIT Referral for Chest pains Encounters Encounter Location Date Provider Diagnosis [facility] [address] [place] [address] 05/16/2024 CHAPITO MOE Plan Of Treatment Referrals Referral Date Details 05/16/2024 05/16/2024, Evaluati on and management Next Appt Details Provider Name:CHAPITO MOE , 04/17/2025 01:00:00 PM, [address], [place], [address], Progress Notes * Yoko EUBANKSDOB: [birth year] (58 yo F)Acc No.[id number]:05/16/2024 Patient:?Yoko EUBANKS :1965???Age:58 Y???Sex:Female Address:[address] [place] [id number] Subjective: * Chief Complaints: * ???Referral for Chest pains * Medical History:? * Surgical History:? * Hospitalization/Major Diagno stic Procedure:? * Medications:? Objective: * Vitals:? * Physical Examination:? Assessment: Plan: * Treatment: * Procedure Codes:? * true * Date:? Generated for Darlene villarreal/Carrie/Herrerasmitting on:?08/30/2024 09:28 AM EST Consultation Request Notes Referral Date Referring Provider Referred Provider Not 05/16/2024 CHAPITO MOE , Evaluation and management
--- OUTSIDE RECORDS SUMMARY | 2024-08-30 09:29 | XMS_ITS | Clinical Summary ---
Author Organization [facility] Address [address] [place] [address] Phone Care Team Providers Care Gem Carver Name Role Phone Vernon Jamison MD Primary Care Provider [phone] Allergies Active Allergy Reactions Criticality Noted Date Comments Ampicillin Medium 01/19/2017 Other Reaction(s): Rash/Dermatitis Medications rosuvastatin (CRESTOR) 5 mg tablet Take 1 tablet (5 mg total) by mouth 1 (one) time each day. Active pantoprazole (PROTONIX) 40 mg EC tablet Take 1 tablet (40 mg total) by mouth 1 (one) time each day before breakfast. Do not crush, chew, or split. Active cholecalcifero l (VITAMIN D-3) 50 mcg (2,000 unit) tablet Take 1 tablet (2,000 Units total) by mouth 1 (one) time each day. Active clotrimazole-b etamethasone (LOTRISONE) 1-0.05 % cream apply topically to affected area twice a day FOR NO MORE THAN 10 DAYS 9 08/11/19 25 Discontinue d(Discontin ued by another clinician) fluconazole (DIFLUCAN) 150 mg tablet take 1 tablet by mouth as a single dose 9 08/11/19 25 Discontinue d(Discontin ued by another clinician) Active Problems Problem Noted Date Diagnosed Date Shortness of breath 08/11/2024 Assessment & Plan (08/11/2024 11:32 AM EST): Multifactorial. The patient clearly has deconditioning in the setting of obesity. She also has evidence of fatigue which may potentially be related to undiagnosed sleep apnea syndrome. There is no evidence of congestive heart failure or atrial fibrillation. I suggested that she consider a home sleep study and that she discuss this option with Dr. Jamison. In the meantime it may be helpful for family members to observe whether or not she has apneic spells. Chest pain 08/09/2024 Assessment & Plan (08/11/2024 11:32 AM EST): The patient has chest pain which is clearly musculoskeletal. It is aggravated by lying on her left side in bed and relieved by lying on her back. It is reproduced by manual palpation of the left side of her chest. I reassured the patient that the symptoms did not reflect angina and was unrelated to the heart. Topical ointments or patches may be utilized and she should avoid positions which aggravate this discomfort. Orders: ECG 12 lead Cardiac holter monitor (<= 48 hours); Future Palpitations 08/09/2024 Assessment & Plan (08/11/2024 11:32 AM EST): The patient notes that her heart rate is often rapid and that occasionally she has slowing of the heart rate with prominent beats with a pattern which may suggest premature beats. She has not had profound tachycardia or hemodynamically significant dysrhythmia. In an effort to provide more information about her palpitations I am making arrangements for 24-hour Holter monitor. Tachycardia 08/09/2024 Assessment & Plan (08/11/2024 11:32 AM EST): See above. Encounters Date Type Department Care Team Description 08/11/2024 10:20 AM EST Office Visit [facility] Cardiology [facility] [address] [place] [address] Jarret Grant MD Chest pain, unspecified type (Primary Dx); Palpitations; Tachycardia; Shortness of breath 08/11/2024 8:00 AM EST Ancillary Procedure [facility] Cardiology [facility] [address] [place] [phone] Chest pain, unspecified type 07/28/2024 Telephone [facility] [address] [place] [address] Vernon Jamison MD 07/14/2024 Telephone [facility] Cardiology [facility] [address] [place] [address] Vernon Jamison MD from Last 3 Months Surgical History Surgery Date Site/Laterality Comments COLONOSCOPY PROCEDURE: OUTSIDE COLONOSCOPY; COMMENT: 12/17/15 SECTION PROCEDURE: HISTORICAL DELIVERY HEMORRHOID SURGERY PROCEDURE: DESTRUCTION OF HEMORRHOIDS Medical History Medical History Date Comments HTN (hypertension) DX:HTN (hyper tension); COMMENT: diet controlled Obesity DX:Obesity Vitamin D deficiency DX:Vitamin D deficiency Anxiety and depression DX:Anxiet y and depression; COMMENT: on meds Vulvar candidiasis DX:Vulvar can didiasis Stress incontinence 2014 DX:Stress in continence; COMMENT: also chronic urinary incontinence Cataract DX:Cataract; COM MENT: bilateral Pancreatic lesion DX:Pancreatic lesion Liver hemangioma DX:Liver jeremiah ioma GERD (gastroesophageal reflux disease) DX:GERD (gastroesophageal reflux disease) Eczema DX:Eczema Headache DX:Headache; COM MENT: chronic Vitamin B12 deficiency IFG (impaired fasting glucose) Chondrocostal junction syndrome Social History Tobacco Use Types Packs/Day Years Used Date Smoking Tobacco: Never Smokeless Tobacco: Never Alcohol Use Standard Drinks/Week Comments No 0 (1 standard drink = 0.6 oz pur e alcohol) Comments Unknown Sex and Gender Information Value Date Recorded Sex Assigned at Not on file Legal Sex Female 9:36 AM EST Gender Identity Not on file Sexual Orientation Not on file Obstetrics History Last Filed Vital Signs Vital Sign Reading Time Taken Comments Blood Pressure 120/80 08/11/2024 10:17 AM EST Pulse 97 08/11/2024 10:17 AM EST Temperature - - Respiratory Rate - - Oxygen Saturation 99% 08/11/2024 10:17 AM EST Inhaled Oxygen Concentration - - Weight 79.8 kg (176 lb) 08/11/2024 10:17 AM EST Height 162.6 cm (5' 4 ) 08/11/2024 10:17 AM EST Body Mass Index 30.21 08/11/2024 10:17 AM EST Plan of Treatment Health Maintenance Due Date Last Done Comments Breast Cancer Screening 1965 Hepatitis A Vaccines (1 of 2 - Risk 2-dose series) 10/28/1983 Pneumococcal Vaccine: 50+ Years (1 of 1 - PCV) 2014 Zoster Vaccines (1 of 2) 2014 Colorectal Cancer Screening: Colonoscopy 05/27/2022 Depression Screening 05/27/2022 HIV Screening 05/27/2022 Hepatitis C Screening 05/27/2022 Social Influencers of Health Screening 05/27/2022 Cervical Cancer Screening: HPV 02/11/2024 02/10/2019 COVID-19 Vaccine (3 - 2023-2 5 season) 2024 02/18/2021, 01/22/2021 Influenza Vaccine (#1) 2024 04/10/2011 Cholesterol Screening (Lipid Panel) 06/07/2024 06/07/2019, 10/02/2017 Hypertension/CHF/CAD Annual BMP Blood Test 08/11/2024 DTaP,Tdap,and Td Vaccines (4 - Td or Tdap) 02/28/2030 02/29/2020, 03/06/2009, 01/31/2009 RSV Immunization Patients 60 + Years Old (1 - 1-dose 75+ series) 10/28/2039 MMR Vaccines Aged Out 03/06/2009, 02/10/2009 No longer eligible based on patient's age to complete this topic Hepatitis B Vaccines Completed 08/11/2011, 05/28/2010, 03/06/2009 HIB Vaccines Aged Out No longer eligi ble based on patient's age to complete this topic HPV Vaccines Aged Out No longer eligi ble based on patient's age to complete this topic IPV Vaccines Aged Out No longer eligi ble based on patient's age to complete this topic Meningococcal ACWY Vaccine Aged Out N o longer eligible based on patient's age to complete this topic Meningococcal B Vacine Aged Out No lo nger eligible based on patient's age to complete this topic Pneumococcal Vaccine: Pediatrics (0 to 5 Years) and At-Risk Patients (6 to 64 Years) Aged Out No longer eligible b ased on patient's age to complete this topic RSV Immunization Patients Under 20 months Aged Out No longer eligible b ased on patient's age to complete this topic Varicella Vaccines Aged Out No longer eligible based on patient's age to complete this topic Procedures Procedure Name Priority Date/Time Associated Diagnosis Comments CARDIAC HOLTER MONITOR (REPORT GENERATED IN HOUSE) Routine 08/11/2024 12:50 PM EST Chest pain, unspecified type ECG 12-LEAD Routine 08/11/2024 10:29 AM EST Chest pain, unspecified type HM HPV Routine 02/10/2019 from Last 3 Months or Most Recently Relevant to Health Maintenance Results * CARDIAC HOLTER MONITOR (REPORT GENERATED IN HOUSE) (08/11/2024 12:50 PM EST) Anatomical Region Laterality Modality Cardiac Diagnost ic Narrative 08/21/2024 11:39 AM EST [facility] [address] [place] [address] TEL: FAX: Type of Test: 24 Hour Holter Monitor Date of Test: 08/11/2024 Ordering Provider: ??Jarret Grant MD Reason for Test: Palpitations, Chest Pain Impression: ?? Scan obscured by baseline artifact and wires disconnected/reconnected ?? (Monitor returned on 08/19/2024) ? Total time recorded: 10 hours 40 minutes 1: Normal Sinus Rhythm with episodes of Sinus Tachycardia and Sinus Arrhythmia. 2: Heart rate range was 59-120 BPM with an average of 87 BPM. Total time in Sinus Tachycardia: 6 hrs 44 mins. 3: Occasional PACs, aberrantly conducted beats, and atrial pairs. 4: Occasional PVCs. Rare ventricular couplets. 5: No significant pause, longest R-R was 1.2 seconds at 6:07 AM. 6: Diary returned with symptoms of palpitations, shortness of breath, and chest pain noted. EKG at 2:57 PM entry of palpitations showed Sinus Tachycardia and occasional PACs and atrial pairs with heart rate range of 115-117 BPM. Unable to obtain EKG data for remaining three diary entries due to wires disconnected. us Jarret Grant MD [facility] CARDIAC SERVICES PROCEDURES Final Result * ECG 12 lead (08/11/2024 10:29 AM EST) Pathologist [facility] Ventricular Rate ECG 91 BPM GEMUSE Atrial Rate 91 BPM GEMUSE P-R Interval 160 ms GEMUSE QRS Duration 86 ms GEMUSE Q-T Interval 380 ms GEMUSE QTc 467 ms GEMUSE P Wave [place] 52 degrees GEMUSE R [place] 63 degrees GEMUSE T [place] 27 degrees GEMUSE ECG Interpretation Normal sinus rhythm Nonspecific T wave abnormality Abnormal ECG When compared with ECG of 31-JUL-2018 17:16, Nonspecific T wave abnormality is now Present Confirmed by JARRET GRANT ([id number]) on 08/11/2024 11:28:35 AM GEMUSE 08/11/2024 10:2 9 AM EST 08/11/2024 11:28 AM EST Jarert Grant MD ECG ORDERABLES Final Result GEMUSE * Cervical Cancer Screening: HPV (02/10/2019) [facility] Cervical Cancer Screening: HPV normal, abstracted Historical Provider HEALTH MAINTENANCE Final Result from Last 3 Months or Most Recently Relevant to Health Maintenance Insurance [facility] [place] [address] Care Teams Gem Carver Relationship Specialty Start Date End Date Vernon Jamison MD [address] [place] [address] PCP - General Internal Medicine 09/13/20
--- OUTSIDE RECORDS SUMMARY | 2024-08-30 09:29 | XMS_ITS ---
Author Organization [facility] Address [address] [address] Care Team Providers Care Cork Cutter Name Role Phone CHAPITO MOE Primary Care Provider [phone] REASON FOR VISIT Omeprazole Refill Medications Medication SIG (Take, Route, Fr equency, Duration) Notes Start Date End Date Status Protonix 40 MG 1 tablet Orally Once a day for 30 days 05/03/2020 Active Encounters Encounter Location Date Provider Diagnosis [facility] [address] [address] 05/20/2024 CHAPITO MOE Gastro-esophageal reflux disease without esophagitis K21.9 Assessments Encounter Date Diagnosis (ICD Code) Assessment Notes Treatment Notes Treatment Clinical Notes Section Notes 05/20/2024 Gastro-esophagea l reflux disease without esophagitis (ICD-10 - K21.9) Plan Of Treatment Medication Medication Name Sig Start Date Stop Date Notes Protonix 40 MG 1 tablet Orally Once a day for 30 days 10/2019 Next Appt Details Provider Name:CHAPITO MOE , 04/17/2025 01:00:00 PM, [address] [place] [address], [phone], Progress Notes * Yoko EUBANKSDOB: [birth year] (58 yo F)Acc No.[id number]:05/20/2024 Patient:?HECTOR MATTRafiqjeevan :1965???Age:58 Y???Sex:Female Address:[address] [place] [address] * Refills? Refill Protonix Tablet Delayed Release, 40 MG, Orally, 30, 1 tablet, Once a day, 30 days, Refills=5 * true * Date:? Generated for Darlene villarreal/Carrie/Tamanna on:?08/30/2024 09:28 AM EST
--- OUTSIDE RECORDS SUMMARY | 2024-08-30 09:29 | XMS_ITS | Encounter Summary ---
Author Organization [facility] Address [address] [place] [address] Care Team Providers Care Glass Deposition Tender Name Role Phone Vernon Jamison MD Primary Care Provider [phone] Reason for Visit * Reason Comments 24 Hour Holter Monitor * Cardiac Stress Testing (Routine) - Closed Specialty Diagnoses / Procedures Referred By Contac t Referred To Contact Cardiology Diagnoses Chest pain, unspecified type Procedures Cardiac holter monitor (<= 48 hours) WA ECG EXTERNAL UP TO 48 HOURS RECORDING WA ECG EXTERNAL < 48 HOURS CONTINUOUS RECORDING/STORAGE R&I BY A PHYS/QHP WA EXTERNAL ECG UP TO 48 HRS INCL RECORDING SCANNING ANLYS W REPORT Chace Jones MD [address] [place] [address] [place] [address] Phone: tel: fax: [facility] Referral ID Status Reason Start Date Expiration Date Visits Re quested Visits Authorized [id number] Closed 08/11/2024 08/11/2025 1 1 Encounter Details Date Type Department Care Team (Latest Contact Info) Description 08/11/2024 8:00 AM EST Ancillary Procedure [facility] [address] [place] [address] Chest pain, unspecified type Social History Tobacco Use Types Packs/Day Years Used Date Smoking Tobacco: Never Smokeless Tobacco: Never Alcohol Use Standard Drinks/Week Comments No 0 (1 standard drink = 0.6 oz pur e alcohol) Comments Unknown Sex and Gender Information Value Date Recorded Sex Assigned at Not on file Legal Sex Female 9:36 AM EST Gender Identity Not on file Sexual Orientation Not on file documented as of this encounter Plan of Treatment Not on file documented as of this encounter Procedures Procedure Name Priority Date/Time Associated Diagnosis Comments CARDIAC HOLTER MONITOR (REPORT GENERATED IN HOUSE) Routine 08/11/2024 12:50 PM EST Chest pain, unspecified type documented in this encounter Results * CARDIAC HOLTER MONITOR (REPORT GENERATED IN HOUSE) (08/11/2024 12:50 PM EST) Anatomical Region Laterality Modality Cardiac Diagnost ic Narrative 08/21/2024 11:39 AM EST [facility] [address] [place] [address], [place] [address] TEL: FAX: Type of Test: 24 Hour Holter Monitor Date of Test: 08/11/2024 Ordering Provider: ??Chace Jones MD Reason for Test: Palpitations, Chest Pain [...] diary entries due to wires disconnected. us Chace Jones MD CV CARDIAC SERVICES PROCEDURES Final Result documented in this encounter Visit Diagnoses Diagnosis Chest pain, unspecified type documented in this encounter Care Teams Glass Deposition Tender Relationship Specialty Start Date End Date Vernon Jamison MD [address] [place] [address] PCP - General Internal Medicine 09/13/20 documented as of this encounter
--- OUTSIDE RECORDS SUMMARY | 2024-08-30 09:29 | XMS_ITS | Encounter Summary ---
Author Organization [facility] Address [address] [place] [address] Care Team Providers Care Geospatial Scientist Name Role Phone Vernon Jamison MD Primary Care Provider [phone] Reason for Referral * Cardiac Stress Testing (Routine) - Closed Specialty Diagnoses / Procedures Referred By Contac t Referred To Contact Cardiology Diagnoses Chest pain, unspecified type Procedures Cardiac holter monitor (<= 48 hours) CA ECG EXTERNAL UP TO 48 HOURS RECORDING CA ECG EXTERNAL < 48 HOURS CONTINUOUS RECORDING/STORAGE R&I BY A PHYS/QHP CA EXTERNAL ECG UP TO 48 HRS INCL RECORDING SCANNING ANLYS W REPORT Jarret Grant MD [address] [place] [address] Phone: tel: fax: [facility] Referral ID Status Reason Start Date Expiration Date Visits Re quested Visits Authorized [id number] Closed 08/11/2024 08/11/2025 1 1 Reason for Visit * Reason Comments New Patient Chest Pain, Palpitat ions Encounter Details Date Type Department Care Team (Late st Contact Info) Description 08/11/2024 10:20 AM EST Office Visit [facility] Cardiology [facility] [address] [place] [phone] Jarret Grant MD [address] [place] [address] Chest pain, unspecified type (Primary Dx); Palpitations; Tachycardia; Shortness of breath Social History Tobacco Use Types Packs/Day Years [...] on file documented as of this encounter Last Filed Vital Signs Vital Sign Reading [...] Mass Index 30.21 08/11/2024 10:17 AM EST documented in this encounter Progress Notes * Jarret Grant MD - 08/11/2024 10:20 AM ESTAssociated Problem(s): Chest pain The patient has chest pain which is clearly musculoskeletal. It is aggravated by lying on her left side in bed and relieved by lying on her back. It is reproduced by manual palpation of the left sideof her chest. I reassured the patient that the symptoms did not reflect angina and was unrelated tothe heart. Topical ointments or patches may be utilized and she should avoid positions which aggravate this discomfort. Orders: ECG 12 lead Cardiac holter monitor (<= 48 hours); Future * Jarret Grant MD - 08/11/2024 10:20 AM ESTAssociated Problem(s): Palpitations The patient notes that her heart rate is often rapid and that occasionally she has slowing of the heart rate with prominent beats with a pattern which may suggest premature beats. She has not had profound tachycardia or hemodynamically significant dysrhythmia. In an effort to provide more information about her palpitations I am making arrangements for 24-hour Holter monitor. * Jarret Grant MD - 08/11/2024 10:20 AM ESTAssociated Problem(s): Tachycardia See above. * Jarret Grant MD - 08/11/2024 10:20 AM ESTAssociated Problem(s): Shortness of breath Multifactorial. The patient clearly has deconditioning in [...] whether or not she has apneic spells. * Jarret Grant MD - 08/11/2024 10:20 AM EST PCP: Vernon Jamison MD HPI: Yoko Eubanks is a 58 y.o. old female who speaks Albanian. She is accompanied by her son who serves as title lawyer. History of Present Illness The patient is a very pleasant 58-year-old woman who is referred for cardiac consultation for the assessment of chest pain, breathlessness, and palpitations. She has a history of hyperlipidemia. She experiences intermittent episodes of tachycardia, which can occur predominantly at rest. These episodes are often accompanied by dyspnea. She reports that these symptoms have been present for less than a year. Initially, her primary care physician attributed these symptoms to anxiety and did not provide any referrals. However, she was eventually referred to our clinic. She has a lifelong history of anxiety but has never experienced these cardiac symptoms before. She reports no syncope. She describes her heart rate as predominantly fast, with occasional episodes of slower, more forceful beats. These symptoms occur daily, with some days being more severe than others. She has sought emergency care on one occasion due to these symptoms. At other times, she experiences left-sided chest pain that radiates to her back. The pain is described as sharp, kristen to a needle prick, and is exacerbated when lying on her left side. She finds relief when lying supine or on her right side. She also reports fatigue and difficulty sleeping due to the pain. She does snore but has not been told of apneic spells. She does not engage in long-distance walking and does not believe there is a correlation between her symptoms and physical activity. Sheoccasionally uses a cane for ambulation. ACTIVE MEDICATIONS: Outpatient Medications Marked as Taking for the 08/11/24 encounter (Office Visit) with Jarret Grant MD Medication Sig Dispense Refill cholecalciferol (VITAMIN D-3) 50 mcg (2,000 unit) tablet Take 1 tablet (2,000 Units total) by mouth1 (one) time each day. pantoprazole (PROTONIX) 40 mg EC tablet Take 1 tablet (40 mg total) by mouth 1 (one) time each day before breakfast. Do not crush, chew, or split. rosuvastatin (CRESTOR) 5 mg tablet Take 1 tablet (5 mg total) by mouth 1 (one) time each day. PAST MEDICAL HISTORY: Patient Active Problem List Diagnosis Date Noted Date Diagnosed Chest pain 08/09/2024 Palpitations 08/09/2024 Tachycardia 08/09/2024 Resolved Problems No resolved problems to display. ALLERGIES: Allergies Allergen Reactions Ampicillin Other Reaction(s): Rash/Dermatitis FAMILY HISTORY: No family history on file. SOCIAL HISTORY: Social History Tobacco Use Smoking status: Never Smokeless tobacco: Never Substance Use Topics Alcohol use: No REVIEW OF SYSTEMS: ROS otherwise negative. No infection, bleeding or trauma. She has knee pain which limits her activities. PHYSICAL EXAM: Vitals: 08/11/24 1017 BP: 120/80 BP Location: Left arm Patient Position: Sitting BP Cuff Size: Adult Pulse: 97 SpO2: 99% Weight: 79.8 kg (176 lb) Height: 1.626 m (64 ) APPEARANCE: Alert and in no acute distress, obese. EYES: PERRL, conjunctiva and sclera normal EARS: External ears normal. NOSE/SINUS: Nares normal. Septum midline. Mucosa normal. No drainage or sinus tenderness. MOUTH/THROAT: no erythema or exudates NECK: JVP less then 8cm H2O, No bruits., Neck supple, no adenopathy or mass HEART: RRR with normal S1 and S2, no murmurs, no gallops, no JVD appreciated CHEST: Left side of chest is tender along the site of several intercostal joints with reproduction of her clinical chest discomfort LUNG: clear to auscultation ABDOMEN: Bowel sounds normoactive, no bruits, soft, non-tender, without organomegaly or palpable masses EXTREMITIES: Extremities warm and well perfused without clubbing, cyanosis, or edema NEURO: Awake, alert and oriented x 3 and Normal gait SKIN: Skin color, texture, turgor normal. No rashes or lesions. EKG: Normal sinus rhythm with normal conduction times. Minor T wave flattening is nonspecific. Borderline EKG. ASSESSMENT/PLAN: Assessment & Plan Chest pain, unspecified type The patient has chest pain which is clearly musculoskeletal. It is aggravated by lying on her left side in bed and relieved by lying on her back. It is reproduced by manual palpation of the left sideof her chest. I reassured the patient that the symptoms did not reflect angina and was unrelated tothe heart. Topical ointments or patches may be utilized and she should avoid positions which aggravate this discomfort. Orders: ECG 12 lead Cardiac holter monitor (<= 48 hours); Future Palpitations The patient notes that her heart rate is often rapid and that occasionally she has slowing of the heart rate with prominent beats with a pattern which may suggest premature beats. She has not had profound tachycardia or hemodynamically significant dysrhythmia. In an effort to provide more information about her palpitations I am making arrangements for 24-hour Holter monitor. Tachycardia See above. Shortness of breath Multifactorial. The patient clearly has deconditioning in [...] whether or not she has apneic spells. Assessment & Plan 1. Chest wall pain. The chest discomfort is likely due to inflammation of the chest wall, as evidenced by tenderness upon palpation and worsening pain when lying on the left side. The EKG results are normal, indicating that the heart is functioning well. Zxtl-rux-nphtebz anti-inflammatory creams or patches are recommended for symptomatic relief. She is advised to avoid lying on the left side to prevent aggravation of the pain. 2. Palpitations. The palpitations are described as episodes of fast heart rate, sometimes accompanied by slower, harder heartbeats. These episodes occur randomly, often at night, and are not associated with physical activity. A Holter monitor will be utilized to capture these episodes and provide further insight into their nature. 3. Suspected sleep apnea. The patient reports snoring and episodes of waking up at night, which may indicate sleep apnea. This condition can cause fatigue and palpitations. Further evaluation for sleep apnea is recommended. I have obtained verbal consent from Yoko Hector Ramirezmarni prior to the recording. I have advised Yoko oYung Ashleymarni that she may refuse the recording and require the recording to be turned off at any time during this encounter. documented in this encounter Plan of Treatment Not on file documented as of this encounter Procedures Procedure Name Priority Date/Time Associated Diagnosis Comments ECG 12-LEAD Routine 08/11/2024 10:29 AM EST Chest pain, unspecified type documented in this encounter Results * CARDIAC HOLTER MONITOR (REPORT GENERATED IN HOUSE) (08/11/2024 12:50 PM EST) Anatomical Region Laterality Modality Cardiac Diagnost ic Narrative 08/21/2024 11:39 AM EST [facility]PARTMENT [address] [facility], [id number], [place] [address] TEL: FAX: Type of Test: 24 Hour [...] ECG 12 lead (08/11/2024 10:29 AM EST) Ventricular Rate ECG 91 BPM GEMUSE Atrial Rate 91 BPM GEMUSE P-R Interval 160 ms GEMUSE QRS Duration 86 ms GEMUSE Q-T Interval 380 ms GEMUSE QTc 467 ms GEMUSE P Wave [place] 52 degrees GEMUSE R [place] 63 degrees GEMUSE T [place] 27 degrees GEMUSE ECG Interpretation Normal sinus rhythm Nonspecific T wave abnormality Abnormal ECG When compared with ECG of 31-JUL-2018 17:16, Nonspecific T wave abnormality is now Present Confirmed by JARRET GRANT ([id number]) on 08/11/2024 11:28:35 AM GEMUSE 08/11/2024 10:2 9 AM EST 08/11/2024 11:28 AM EST us Jarret Grant MD ECG ORDERABLES Final Result GEMUSE documented in this encounter Visit Diagnoses Diagnosis Chest pain, unspecified type- Primary Palpitations Tachycardia Unspecified tachycardia Shortness of breath Chest pain, unspecified type documented in this encounter Discontinued Medications Medication Sig Discontinue Reason Start Date End Da te clotrimazole-betameth asone (LOTRISONE) 1-0.05 % cream apply topically to affected area twice a day FOR NO MORE THAN 10 DAYS Discontinued by another clinician 02/15/2019 08/11/2024 fluconazole (DIFLUCAN) 150 mg tablet take 1 tablet by mouth as a single dose Discontinued by another clinician 02/15/2019 08/11/2024 documented as of this encounter Historical Medications * This list may reflect changes made after this encounter. cholecalciferol (VITAMIN D-3) 50 mcg (2,000 unit) tablet Take 1 tablet (2,000 Units total) by mouth 1 (one) time each day. pantoprazole (PROTONIX) 40 mg EC tablet Take 1 tablet (40 mg total) by mouth 1 (one) time each day before breakfast. Do not crush, chew, or split. rosuvastatin (CRESTOR) 5 mg tablet Take 1 tablet (5 mg total) by mouth 1 (one) time each day. added in this encounter Care Teams Geospatial Scientist Relationship Specialty Start Date End Date Vernon Jamison MD [address] [place] [address] PCP - General Internal Medicine 09/13/20 documented as of this encounter
== END 2024-08-30 09:39 | disposition home or self-care (01) ==
PROVIDERS: PCP Hospitalist; Visit Provider Orthopaedic Surgery
DX: S60.351A Superficial foreign body of right thumb, initial encounter (principal)
CPT/HCPCS: 99203

== ENCOUNTER → 2024-08-30 08:48 | Outpatient (BNV) | payer OTHER, SELFPAY | PROVIDERS: Visit Provider Radiology Diagnostic Radiology | DX: M79.641 Pain in right hand (principal); M19.041 Primary osteoarthritis, right hand | CPT/HCPCS: 73130 ==

== ENCOUNTER 2024-08-30 12:24 | Outpatient (REF) | payer OTHER, SELFPAY ==
--- NOTE | ~2024-08-30 | XR_ITS ---
EXAMINATION: XR HAND, RIGHT CLINICAL INFORMATION: M79.641 - Pain in right hand COMPARISON: None available. TECHNIQUE: PA, lateral, and oblique views of the right hand. FINDINGS: There is mild loss of PIP and DIP joint space without bony erosive changes. There is mild periarticular spurring PIP and MCP joint first digit. No visible acute fracture, dislocation or subluxation. The soft tissues are normal. XR/XR hand RT min 3V IMPRESSION: Mild osteoporotic changes PIP and DIP joints including the first MCP joint.. Electronically signed by: Yan Ty MD 08/30/2024 02:03 PM EST
--- OUTSIDE RECORDS SUMMARY | 2024-08-31 14:44 | XMS_ITS | Clinical Summary ---
Author Organization [facility] Address [address] [place] [address] Support Name Relationship Address Phone Sofi Guan Son [address] [place] [address] Care Team Providers Care Piercing Mill Operator Name Role Phone Fauzia Woodard-Glenny Primary Care [...] Overview (12/06/2017): 02/10/14 Sleep study done at [facility]. INTERPRETATION: Sleep architecture and staging was [...] Overview (10/05/2017): 07/09/17 - vestibular rehab at [facility]: eval + 3 F/U's / no-showed 4 [...] (08/10/2016): F/u [facility] [address] [facility] Pinguecula of both eyes 08/10/2016 Overview (08/10/2016): F/u [facility] [address] [facility] Pancreatic lesion 08/27/2015 Overview (10/17/2015): MRI of abdomen done at [facility] 08/17/15 which revealed hepatic lesion up to 3.4 cm consistent with hemangioma, right adrenal adenoma which measures up to 3.0 cm and a 0.8 cm T2 hyperintensity in uncinate process statistically most likely side branch billy-ductal papillary mucinous neoplasm. Seen by GI 10/14/15 to repeat MRI in a year. Liver hemangioma 08/27/2015 Overview (10/17/2015): MRI of abdomen done at [facility] 08/17/15 which revealed hepatic lesion up to 3.4 cm consistent with hemangioma, right adrenal adenoma which measures up to 3.0 cm and a 0.8 cm T2 hyperintensity in uncinate process statistically most likely side branch billy-ductal papillary mucinous neoplasm. No further w/u needed for liver hemangioma. Adenoma of right adrenal gland 08/27/2015 Overview (08/27/2015): MRI of abdomen done at [facility] 08/17/15 which revealed hepatic lesion up to 3.4 cm consistent with hemangioma, right adrenal adenoma which measures up to 3.0 cm and a 0.8 cm T2 hyperintensity in uncinate process statistically most likely side branch billy-ductal papillary mucinous neoplasm. Allergic urticaria, seasonal 04/23/2015 Overview (05/01/2015): CXR 04/30/15 at [facility] revealed no acute pulmonary process. Stress incontinence, s/p ret ropubic midurethral sling and cystoscopy on 05/05/[address] Eloy Rawls 03/02/2015 Allergic rhinosinusitis 05/15/2014 Low back pain 09/23/2012 Overview (05/19/2019): 09/09/18 - Lumbar xray: negative 01/26/19 - PT [facility] 2x/wk for 4-5 wks 05/07/19 [facility] MR [...] Overview (07/10/2015): Psych f/u with [facility] in [place]. Insomnia due to anxiety and fear 09/06/2010 Overview (04/08/2016): Psych f/u Dr. Hogan. Chronic headaches 05/28/2010 Overview (03/28/2013): MRI Brain 03/27/10: Maxillary Sinus retention cysts, Left maxillary air fluid levels Eczema/urticaria neck & chest 03/06/2009 Overview (08/24/2013): Seen Derm 08/22/09. F/u mental health associate Dr. Fall. HTN (hypertension)- diet control 01/31/2009 Overview (11/27/2014): Diet control Obesity 01/31/2009 Vitamin D deficiency 01/31/2009 Overview (03/28/2013): =7. Allergic rhinitis due to allergen Overview (02/21/2019): F/u Dr. Fall. 02/07/19 - Seen by mental health associate [facility] ([facility]) Dr. Dev Bond - allergic rhinitis well controlled, refer to derm for urticaria GERD (gastroesophageal reflux disease) Vulvar candidiasis Overview (08/07/2014): [facility] 07/26/14. Resolved Problems Problem Noted Date [...] of Treatment Not on file Insurance [facility] Care Teams Piercing Mill Operator Relationship Specialty Start Date End Date Fauzia Woodard FNP-C [facility] [place] [address] PCP - General 02/17/22
--- OUTSIDE RECORDS SUMMARY | 2024-08-31 14:44 | XMS_ITS | Data Portability ---
Author Organization [facility] [address] Address [address] [place] [address] Assessment No assessment recorded. Plan of Treatment Reminders Order Date Submit Date Provider Last Modified By Organization Details Last Modified Time Details Appointments None recorded. Lab None recorded. Referral None recorded. Procedures None recorded. Surgeries None recorded. Imaging None recorded. Medication Orders naproxen 500 mg tablet 2022 023 [id number], [address] [place], [address], 18:37:07 Patient TargetsNo targets recorded. Patient Instructions Encounter Date Encounter Id Patient Instructions Last Modified By Organization Details Last Modified Time 01/13/2023 [id number] headache: care instructions [email or web address] Not available 01/13/2023 18:37:05 Reason for Referral None Reported. Problems Name Problem SNOMED Code Status Onset Date Resolution Date Notes Provider Name and Address Organization Details Recorded Time Migraine [id number] Active 023 [facility] 01/13/2023 17:36:49 Problem [...] Name and Address Organization Details Recorded Time 966965 ampicilli n medicatio n Not available Not [...] Updated DateTime 3 162.56 cm 30.4 kg/m2 37503.8 5 g 18 /min 98.5 [degF] 96 [...] SNOMED-CT Code Diagnosis ICD10 Code Diagnosis Note [id number] [address] [place] [address] 05/14/2021 14:50:15 05/14/2021 17:07:23 [id number] Linwood Ballard MD [address] [facility] [place] [address] 01/13/2023 16:39:21 01/13/2023 18:40:03 Headache 40269018 R51.9 Several possible conditions can be the [...] Duenas Member ID Guarantor Name 05/14/2021 1 [facility] (MEDICAID HMO) [id number] Sanaa Al Mousawy [id number] 0 Sanaa Almousawy 01/13/2023 1 [facility] (MEDICAID HMO) [id number] Sanaa Al Mousawy [id number] 0 Sanaa Almousawy Notes Date Note Type [...] symptoms; no tearing/watery eyes Linwood Ballard MD [facility] [place], [address], [place] - [employer] 01/14/2023 10:32:09 OBGyn Episode No OBEpisode recorded.
--- OUTSIDE RECORDS SUMMARY | 2024-08-31 14:44 | XMS_ITS ---
Author Organization [facility] Address [address] [place] [address] Care Team Providers Care Musical Instrument Maker Name Role Phone CHAPITO MOE Primary Care Provider REASON FOR VISIT Cardio Referral Encounters Encounter Location Date Provider Diagnosis [address] [address] 07/13/2024 CHAPITO MOE Plan Of Treatment Next Appt Details Provider Name:CHAPITO MOE , 04/17/2025 01:00:00 PM, [address] [place] [address], [place], [address], Progress Notes * Yoko EUBANKSDOB: [birth year] (58 yo F)Acc No.[id number]:07/13/2024 Patient:?Yoko EUBANKS :1965???Age:58 Y???Sex:Female Address:[address] [place], [place] [address] [address] * true * Date:? Generated for Darlene villarreal/Carrie/eTransmitting on:?08/31/2024 02:44 PM EST
--- OUTSIDE RECORDS SUMMARY | 2024-08-31 14:45 | XMS_ITS | Encounter Summary ---
Author Organization [facility] Address [address] [place] [address] Care Team Providers Care Critical Care Educator Name Role Phone Vernon Jamison MD Primary Care Provider [phone] Reason for Referral * Cardiac Stress Testing (Routine) - Closed Specialty Diagnoses / Procedures Referred By Contac t Referred To Contact Cardiology Diagnoses Chest pain, unspecified type Procedures Cardiac holter monitor (<= 48 hours) CT ECG EXTERNAL UP TO [address] ECG EXTERNAL < 48 HOURS CONTINUOUS RECORDING/STORAGE R&I BY A PHYS/QHP CT EXTERNAL ECG UP TO 48 HRS INCL RECORDING SCANNING ANLYS W REPORT Jarret Grant MD [address] [place] [address] Phone: tel: fax: [facility] Referral ID Status Reason Start Date Expiration Date Visits Re quested Visits Authorized [id number] Closed 08/11/2024 08/11/2025 1 1 Reason for Visit * Reason Comments New Patient Chest Pain, Palpitat ions Encounter Details Date Type Department Care Team (Late st Contact Info) Description 08/11/2024 10:20 AM EST Office Visit [facility] Cardiology [facility] [address] [facility] [address] [place] [phone] Jarret Grant MD [address] [place] [address] Chest pain, unspecified type (Primary Dx); Palpitations; [...] a 58 y.o. old female who speaks Azeri. She is accompanied by her son who serves as transportation broker. History of Present Illness The patient is [...] indicating that the heart is functioning well. Ibhq-dpa-tlcdoia anti-inflammatory creams or patches are recommended for [...] to the recording. I have advised Yoko Young Ashleymarni that she may refuse the recording [...] Diagnost ic Narrative 08/21/2024 11:39 AM EST [facility]PARTMENT [address] [id number], [place] [address] TEL: FAX: Type of Test: 24 Hour [...] GEMUSE QTc 467 ms GEMUSE P Wave [place] 52 degrees GEMUSE R [place] 63 degrees GEMUSE T [place] 27 degrees GEMUSE ECG Interpretation Normal sinus [...] day. added in this encounter Care Teams Critical Care Educator Relationship Specialty Start Date End Date Vernon Jamison MD [address] [place] [address] PCP - General Internal Medicine 09/13/20 documented as of this encounter
--- OUTSIDE RECORDS SUMMARY | 2024-08-31 14:45 | XMS_ITS ---
Author Organization [facility] Address [address] [place] [address] Care Team Providers Care Staffing Recruiter Name Role Phone CHAPITO MOE Primary Care Provider Reason For Referral Reason Evaluation and manag ement Diagnosis 1 Palpitations (R00.2) Diagnosis 2 Chest pain, unspecif ied (R07.9) Referral Organization [facility] Referring Provider First Name CHAPITO Referring Provider Last Name PAYAL Referring Provider Speciality Internal M edicine Referred Provider Specialty Cardiology General Notes Referral sent to [facility] ([address], [address] [place] [address] ) - Office will call pt for scheduling., Charles Winston 05/16/2024 04:18:55 PM > Referral Priority Routine REASON FOR VISIT Referral for Chest pains Encounters Encounter Location Date Provider Diagnosis [facility] [address] [place] [address] 05/16/2024 CHAPITO MOE Plan Of Treatment Referrals Referral Date Details 05/16/2024 05/16/2024, Evaluati on and management Next Appt Details Provider Name:CHAPITO MOE , 04/17/2025 01:00:00 PM, [address], [place], [address], Progress Notes * Yoko EUBANKSDOB: [birth year] (58 yo F)Acc No.[id number]:05/16/2024 Patient:?Yoko EUBANKS :1965???Age:58 Y???Sex:Female Address:[address] [place] [address] Subjective: * Chief Complaints: * ???Referral for Chest pains * Medical History:? * Surgical History:? * Hospitalization/Major Diagno stic Procedure:? * Medications:? Objective: * Vitals:? * Physical Examination:? Assessment: Plan: * Treatment: * Procedure Codes:? * true * Date:? Generated for Darlene villarreal/Carrie/Herrerasmitting on:?08/31/2024 02:45 PM EST Consultation Request Notes Referral Date Referring Provider Referred Provider Not 05/16/2024 CHAPITO MOE , Evaluation and management
--- OUTSIDE RECORDS SUMMARY | 2024-08-31 14:45 | XMS_ITS | Clinical Summary ---
Author Organization [facility] Address [address] [place] [address] Care Team Providers Care Retail Customer Service Specialist Name Role Phone Unavailable Primary Care Provider [...]
--- OUTSIDE RECORDS SUMMARY | 2024-08-31 14:45 | XMS_ITS | Clinical Summary ---
Author Organization [facility] Kiddie [facility] Address [address] [place] [address] Phone Care Team Providers Care System Safety Engineer Name Role Phone Vernon Jamison MD Primary Care Provider [phone] Allergies Active Allergy Reactions Criticality Noted Date [...] Description 08/11/2024 10:20 AM EST Office Visit [facility] [address] [place] [address] Jarret Grant MD Chest pain, unspecified type (Primary Dx); Palpitations; Tachycardia; Shortness of breath 08/11/2024 8:00 AM EST Ancillary Procedure [facility]iology [facility] [address] [place] [id number] Chest pain, unspecified type 07/28/2024 Telephone [facility] [address] [place] [address] Vernon Jamison MD 07/14/2024 Telephone [facility] [address] [place] [address] Vernon Jamison MD from Last [...] Diagnost ic Narrative 08/21/2024 11:39 AM EST [facility] [address] [place] [address] TEL: FAX: Type of Test: 24 Hour [...] 12 lead (08/11/2024 10:29 AM EST) Pathologist [facility] Ventricular Rate ECG 91 BPM GEMUSE Atrial Rate 91 BPM GEMUSE P-R Interval 160 ms GEMUSE QRS Duration 86 ms GEMUSE Q-T Interval 380 ms GEMUSE QTc 467 ms GEMUSE P Wave [place] 52 degrees GEMUSE R [place] 63 degrees GEMUSE T [place] 27 degrees GEMUSE ECG Interpretation Normal sinus rhythm Nonspecific T wave abnormality Abnormal ECG When compared with ECG of 31-JUL-2018 17:16, Nonspecific T wave abnormality is now Present Confirmed by JARRET GRANT ([id number]) on 08/11/2024 11:28:35 AM GEMUSE 08/11/2024 10:2 9 AM EST 08/11/2024 11:28 AM EST Jarret Grant MD ECG ORDERABLES Final Result GEMUSE * Cervical Cancer Screening: HPV (02/10/2019) [facility] Cervical Cancer Screening: HPV normal, abstracted Historical Provider HEALTH MAINTENANCE Final Result from Last 3 Months or Most Recently Relevant to Health Maintenance Insurance [facility] Care Teams System Safety Engineer Relationship Specialty Start Date End Date Vernon Jamison MD [address] [place] [address] PCP - General Internal Medicine 09/13/20
--- OUTSIDE RECORDS SUMMARY | 2024-08-31 14:45 | XMS_ITS ---
Author Organization [facility] Address [address] [address] Care Team Providers Care Assisted Living Executive Director Name Role Phone CHAPITO MOE Primary Care Provider [phone] REASON FOR VISIT Omeprazole Refill Medications Medication SIG (Take, Route, Fr equency, Duration) Notes Start Date End Date Status Protonix 40 MG 1 tablet Orally Once a day for 30 days 05/03/2020 Active Encounters Encounter Location Date Provider Diagnosis [facility] [address] [address] 05/20/2024 CHAPITO MOE Gastro-esophageal reflux disease without [...] Provider Name:CHAPITO MOE , 04/17/2025 01:00:00 PM, [address] [place] [address], [phone], Progress Notes * Yoko EUBANKSDOB: [birth year] (58 yo F)Acc No.[id number]:05/20/2024 Patient:?HECTOR MATTRafiqjeevan :1965???Age:58 Y???Sex:Female Address:[address] [place] [id number] * Refills? Refill Protonix Tablet Delayed Release, 40 MG, Orally, 30, 1 tablet, Once a day, 30 days, Refills=5 * true * Date:? Generated for Darlene villarreal/Carrie/Tamanna on:?08/31/2024 02:45 PM EST
--- OUTSIDE RECORDS SUMMARY | 2024-08-31 14:45 | XMS_ITS | Encounter Summary ---
Author Organization [facility] Address [address] [place] [address] Care Team Providers Care Grill Chef Name Role Phone Vernon Jamison MD Primary Care Provider [phone] Reason for Visit * Reason Comments 24 Hour Holter Monitor * Cardiac Stress Testing (Routine) - Closed Specialty Diagnoses / Procedures Referred By Contac t Referred To Contact Cardiology Diagnoses Chest pain, unspecified type Procedures Cardiac holter monitor (<= 48 hours) FL ECG EXTERNAL UP TO 48 HOURS RECORDING FL ECG EXTERNAL < 48 HOURS CONTINUOUS RECORDING/STORAGE R&I BY A PHYS/QHP FL EXTERNAL ECG UP TO 48 HRS INCL RECORDING SCANNING ANLYS W REPORT Chace Jones MD [address] [place] [address] [place] [address] Phone: tel: fax: [facility] Referral ID Status Reason Start Date Expiration Date Visits Re quested Visits Authorized [id number] Closed 08/11/2024 08/11/2025 1 1 Encounter Details Date Type Department Care Team (Latest Contact Info) Description 08/11/2024 8:00 AM EST Ancillary Procedure [facility] [address] [place] [address] Chest pain, unspecified type Social [...] Diagnost ic Narrative 08/21/2024 11:39 AM EST [facility] [address] [place] [address], [place] [address] TEL: FAX: Type of Test: 24 Hour [...] type documented in this encounter Care Teams Grill Chef Relationship Specialty Start Date End Date Vernon Jamison MD [address] [place] [phone] PCP - General Internal Medicine 09/13/20 documented as of this encounter
== END 2024-08-30 12:25 | disposition home or self-care (01) ==
LOC: HO.HOSX 12:24
PROVIDERS: Visit Provider Orthopaedic Surgery
DX: M79.641 Pain in right hand (principal); S60.351A Superficial foreign body of right thumb, initial encounter
CPT/HCPCS: 73130; 99202